=== PATIENT | male | born 1940 | race American Indian/Alaskan Native ===

== ENCOUNTER 2016-09-19 09:16 | Day surgery (SDC) | payer MEDICARE ==
[2015-11-19 19:05] VITALS: BMI 18.8
[2016-09-19] MEDS ORDERED: Midazolam 2 MG/2 ML VIAL ONE ×2 (12:33→12:43)
[2016-09-19] MEDS ORDERED: Propofol 10 mg/ml Inj (20 ML) ONE ×2 (12:33→12:43)
[2016-09-19] MEDS ORDERED: Lactated Ringer's 1,000 ML IV ONE (12:40)
[2016-09-19] MEDS ORDERED: Bupivacaine HCl 0.25% PF (10 ml) Inj ONE (12:49)
[2016-09-19] MEDS ORDERED: ceFAZolin IV 1 gm in Dextrose 1 GM/50 ML BAG IVPB ONE (12:49)
[2016-09-19] MEDS ORDERED: HYDROmorphone 0.5 mg/0.5 ml ISec IVP PRN (13:27)
[2016-09-19] MEDS ORDERED: Oxycodone/Acetaminophen 5/325 mg Tab PO PRN ×2 (13:47→14:59)
[2016-09-19 15:26] VITALS: BP 147/52; PULSE 60; RESP 18; TEMP 97; O2SAT 100
--- NOTE | 2016-09-19 17:42 | OP ---
PROCEDURE DATE: 09/19/2016 PREOPERATIVE DIAGNOSIS: Right inguinal hernia. POSTOPERATIVE DIAGNOSIS: Right inguinal hernia. PROCEDURE PERFORMED: 1. Repair of right inguinal hernia with mesh. 2. Repair of testicular artery bleeding. 3. Adjacent tissue transfer closure greater than 30 square cm. SURGEON: Angel Sweet MD ANESTHESIA: General endotracheal. ESTIMATED BLOOD LOSS: Was 40 mL. POSTOPERATIVE CONDITION: Stable. INDICATIONS FOR SURGERY: This is a 76-year-old male with a large right inguinal hernia, now to under go elective repair. GROSS FINDINGS: There was a large indirect right inguinal hernia. The sac extended into the scrotum . During dissection of the sac, there was bleeding from the testicular artery, which was repaired an d had documented flow by Doppler. There were no other abnormal findings. PROCEDURE: The patient taken to the operating room. General anesthesia administered and the right g roin was prepped and draped. A standard right inguinal incision was made and the right external obli que aponeurosis was opened. The spermatic cord was looped with a [place] drain and the hernia sac wa s identified within the cord. It was carefully dissected free back to the internal ring and inverted . Bleeding from the testicular artery was noted and closed with a 7-0 Prolene. Flow was confirmed b y Doppler. Next, a large hernia plug was inserted into the hernia defect and sutured in place with interrupted 2 -0 Prolene sutures. The wound was irrigated with copious amounts of saline solution. Due to a large amount of space, an adjacent tissue transfer closure of greater than 30 square cm was utilized for closure by widely mobilizing, undermining multiple layers of Monocryl, subcuticular Monocry l, and skin clips. The patient tolerated procedure well, returned to recovery room in stable conditi on. Angel Sweet MD cc: [id number] TT: 09/19/2016 17:42:15 hannah
== END 2016-09-19 15:40 | disposition home or self-care (01) ==
LOC: C.SDS 09:16
PROVIDERS: ATTEND Surgery
DX: K40.90 Unilateral inguinal hernia, without obstruction or gangrene, not specified as recurrent (principal); I97.52 Accidental puncture and laceration of a circulatory system organ or structure during other procedure; E11.9 Type 2 diabetes mellitus without complications; I10 Essential (primary) hypertension; J44.9 Chronic obstructive pulmonary disease, unspecified; Z72.0 Tobacco use; N40.0 Benign prostatic hyperplasia without lower urinary tract symptoms; Z79.899 Other long term (current) drug therapy; Y65.8 Other specified misadventures during surgical and medical care; Y92.234 Operating room of hospital as the place of occurrence of the external cause
CPT/HCPCS: 14301; 35221; 49505; J0690; J2001; J2250; J2704; J3010; J7120

== ENCOUNTER 2018-07-30 17:30 | Inpatient (IN) | payer OTHER ==
[2018-07-30 17:31] VITALS: BMI 18.8
[2018-07-30] MEDS ORDERED: Aspirin 325 mg EC Tablets PO STA (18:06)
[2018-07-30] MEDS ORDERED: Enoxaparin 40 mg Syringe SC STA (18:06)
[2018-07-30 18:24] LABS: BASO % 0.7 % (0.0-2.0); EOS # 0.1 K/uL (0.0-0.7); HEMOGLOBIN 13.4 g/dL (12.0-18.0); LYMPH # 2.1 K/uL (1.0-4.3); LYMPH % 35.8 % (20.0-40.0); MEAN CELL VOLUME 84.6 fL (80.0-94.0); MEAN CORPUSCULAR HEMOGLOBIN 27.7 pg (27.0-31.0); MEAN CORPUSCULAR HGB CONC 32.8 g/dL (33.0-37.0); MEAN PLATELET VOLUME 9.6 fL (7.2-11.7); MONO # 0.6 K/uL (0.0-0.8); MONO % 9.9 % (0.0-10.0); NEUT # 3.1 K/uL (1.8-7.0); NEUT % 51.6 % (50.0-75.0); RBC 4.84 Mil/uL (4.40-5.90); RED CELL DISTRIBUTION WIDTH 13.9 % (11.5-14.5)
[2018-07-30 18:32] LABS: INR 1.1; PROTHROMBIN TIME 11.7 SECONDS (9.7-12.2)
[2018-07-30] MEDS ORDERED: Enoxaparin 80 mg Syringe ONE (18:39)
[2018-07-30] MEDS ORDERED: Aspirin 325 mg EC Tablets PO ONE (18:39)
[2018-07-30 18:48] LABS: ALB/GLOB RATIO 1.1 (1.0-2.1); ALBUMIN 4.2 g/dL (3.5-5.0); BLOOD UREA NITROGEN 17 mg/dL (9-20); CALCIUM 9.7 mg/dl (8.6-10.4); GFR NON-AFRICAN AMERICAN > 60
[2018-07-30 18:51] LABS: ALT/SGPT 10 U/L (21-72); AST/SGOT 40 U/L (17-59)
--- NOTE | 2018-07-30 18:51 | RAD ---
Date of service: 07/30/2018 PROCEDURE: CHEST RADIOGRAPH, 1 VIEW HISTORY: SOB COMPARISON: None available. FINDINGS: LUNGS: Clear. PLEURA: No pneumothorax or pleural fluid seen. CARDIOVASCULAR: Atherosclerotic calcifications identified primarily aortic arch. No radiographic findings to suggest acute or significant cardiovascular disease. OSSEOUS STRUCTURES: No significant abnormalities. VISUALIZED UPPER ABDOMEN: Normal. OTHER FINDINGS: None. IMPRESSION: No active disease.No significant interval change compared to the prior examination(s).
[2018-07-30 18:58] LABS: B-TYPE NATRIURETIC PEPTIDE 304 pg/mL (0-900)
--- NOTE | 2018-07-30 19:02 | C.PDOC ---
History Of Present Illness Patient is a 78 year old male, with a PMHx of [place], who presents to the ED with his daughter after being referred from Dr. Rivera's office for an abnormal EKG. Patient was seen in office for routine follow up and was found to have ST shala vations of anterior leads with reciprocal changes. Dr. Rivera wants patient to be admitted to observation and have a cardiac cath done in morning. He denies any CP or SOB. Daughter translated Creole at bedside. Time Seen by Provider: 07/30/18 17:49 Chief Complaint (Nursing): Medical Clearance History Per: Patient, Family History/Exam Limitations: no limitations Current Symptoms Are (Timing): Still Present Recent travel outside of the [place]: No Additional History Per: Patient, Family Past Medical History Reviewed: Historical Data, Nursing Documentation, Vital Signs Vital Signs: Last Vital Signs Temp 97.8 F 07/30/18 17:33 Pulse 76 07/30/18 18:51 Resp 20 07/30/18 18:51 BP 159/67 H 07/30/18 18:51 Pulse Ox 96 07/30/18 18:51 - Medical History PMH: COPD, HTN Surgical History: No Surg Hx Family History: States: Unknown Family Hx - Social History Hx Alcohol Use: No Hx Substance Use: No - Immunization History Hx Tetanus Toxoid Vaccination: No Hx Influenza Vaccination: Yes Hx Pneumococcal Vaccination: No Review Of Systems Cardiovascular: Positive for: Other (abnormal EKG finding). Negative for: Chest Pain Respiratory: Negative for: Shortness of Breath Physical Exam - Physical Exam Appears: Non-toxic, No Acute Distress Skin: Normal Color, Warm, Dry Head: Atraumatic, Normacephalic Oral Mucosa: Moist Neck: Normal ROM Chest: Symmetrical Cardiovascular: Rhythm Regular Respiratory: Normal Breath Sounds, No Rales, No Rhonchi, No Wheezing Gastrointestinal/Abdominal: Soft Neurological/Psych: Oriented x3 ED Course And Treatment - Laboratory Results Result Diagrams: 07/30/18 18:19 07/30/18 18:19 Lab Results: PT 11.7 SECONDS (9.7-12.2) 07/30/18 18:19 INR 1.1 07/30/18 18:19 APTT 38.0 SECONDS (21-34) H 07/30/18 18:19 Troponin I < 0.0120 ng/mL (0.00-0.120) 07/30/18 18:19 NT-Pro-B Natriuret Pep 304 pg/mL (0-900) 07/30/18 18:19 Total Bilirubin 0.7 mg/dL (0.2-1.3) 07/30/18 18:19 AST 40 U/L (17-59) 07/30/18 18:19 ALT 10 U/L (21-72) L 07/30/18 18:19 Alkaline Phosphatase 91 U/L (38-126) 07/30/18 18:19 Total Protein 8.2 g/dL (6.3-8.3) 07/30/18 18:19 Albumin 4.2 g/dL (3.5-5.0) 07/30/18 18:19 Globulin 4.0 gm/dL (2.2-3.9) H 07/30/18 18:19 Albumin/Globulin Ratio 1.1 (1.0-2.1) 07/30/18 18:19 Lab Interpretation: Normal (bnp/trop neg.) ECG: Interpreted By Me, Viewed By Me ECG Rhythm: Sinus Rhythm Interpretation Of ECG: Apparent ST elevations V1, V2, V3 without reciprocal changes Rate From EC O2 Sat by Pulse Oximetry: 96 (on RA) Pulse Ox Interpretation: Normal - Other Rad CXR X-Ray: Viewed By Me, Read By Radiologist Interpretation: IMPRESSION: No active disease.No significant interval change compared to the prior examination(s). Reevaluation Time: 19:18 Reassessment Condition: Unchanged (remains asymptomatic) Medical Decision Making Medical Decision Making: Plan: EKG Bloodwork CXR Ecotrin 325mg PO Plavix 300mg PO Lovenox 50mg PO d/w Dr. Rivera W 1800 and 1900 ok to consult 1914: d/w Dr. Miranda-PMD, ok to Tele obs, but to Hospitalists (out w knee surgery) 2019: d/w Dr. Worrell- Hospitalist- ok to tele obs Disposition Doctor Will See Patient In The: Hospital Counseled Patient/Family Regarding: Studies Performed, Diagnosis - Disposition Disposition: HOSPITALIZED Disposition Time: 19:20 Condition: GOOD - Clinical Impression Clinical Impression: Acute electrocardiogram changes - Scribe Statement The provider has reviewed the documentation as recorded by the Scribrosa Fang All medical record entries made by the Scribe were at my direction and personally dictated by me. I have reviewed the chart and agree that the record accurately reflects my personal performance of the history, physical exam, medical decision making, and the department course for this patient. I have also personally directed, reviewed, and agree with the discharge instructions and disposition.
--- NOTE | 2018-07-30 21:19 | CP.PCM.HP ---
<Dago Edmond - Last Filed: 07/30/18 22:30> History of Present Illness - History of Present Illness History of Present Illness: 78 year old Citizen Of [place] creole speaking male with a past medical history of hypertension, bph and speech impediment presents to the hospital after being referred here by his Hyperbaric Tech Dr. Rivera. Patient was seen earlier today in the office and had an ekg done that showed some changes in the anterior leads. Patient was told to come into the hospital to stay for cardiac catherization in the morning. Patient denies any symptoms in regards to daily activities. Per converstion with his sister Bret, he doesn't always let his family members know when something is bothering him. Patient denies any chest pain, shortness of breath, fevers, chills, headaches, dizziness, changes in vision, palpitations, dyspnea, or any other complaints. PMD: Dr. Miranda Hyperbaric Tech: Dr. Rivera Medical history: htn, bph, speech impediment Surgical history: Inguinal hernia repair Allergies: Denies Medications: Hydrochlorthiazide 25mg PO DAILY Dicyclomine 20mg PO TID Aspirin 81mg PO DAILY Atenolol 25mg PO DAILY Tamsulosin .4mg PO DAILY Dicyclomine 20mg PO TID Amlodipine 5mg PO DAILY Finasteride 5mg PO DAILY Social history: Smoker since a teenager ( 3 cigarettes a day). Denies alcohol use. Denies illict drug use. Lives with Sister and Karrieer in [place]. 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 Moved from [facility] approximately 20 years ago. Contact info: Bret (Sister): [phone] Present on Admission - Present on Admission Any Indicators Present on Admission: No Review of Systems - Constitutional Constitutional: absent: Chills, Daytime Sleepiness, Frequent Falls, Headache, Night Sweats, Weakness - EENT Eyes: absent: Blurred Vision, Diplopia, Discharge, Loss of Peripheral Vision, L oss of Vision Ears: absent: Ear Discharge, Dizziness Nose/Mouth/Throat: absent: Nasal Congestion, Nose Pain, Bleeding Gums, Dysphagia, Mouth Pain, Facial Pain - Cardiovascular Cardiovascular: absent: Chest Pain, Edema, Irregular Heart Rhythm, Leg Edema, Orthopnea, Palpitations, Pedal Edema, Syncope - Respiratory Respiratory: absent: Cough, Dyspnea, Hemoptysis, Change in Mucous Color - Gastrointestinal Gastrointestinal: absent: Belching, Change in Stool Character, Dysphagia, Melena, Nausea, Vomiting - Genitourinary Genitourinary: absent: Change in Urinary Stream, Nocturia, Urinary Urgency, Bladder Distension - Musculoskeletal Musculoskeletal: absent: Arthralgias, Atrophy, Myalgias, Neck Pain, Tingling - Integumentary Integumentary: absent: Bleeding Lesions, Lesions, New Lesions, Striae, Swelling - Neurological Neurological: absent: Abnormal Hearing, Confusion, Loss of Vision, Tingling, Tremor, Vertigo, Weakness - Psychiatric Psychiatric: absent: Anxiety, Behavioral Changes, Homicidal Ideation, Panic Attacks - Endocrine Endocrine: absent: Polydipsia, Polyphagia, Polyuria - Hematologic/Lymphatic Hematologic: absent: Easy Bleeding, Easy Bruising Past Patient History - Past Medical History & Family History Past Medical History?: Yes - Past Social History Smoking Status: Light Smoker < 10 Cigarettes Daily - CARDIAC Hx Hypertension: Yes - PULMONARY Hx Chronic Obstructive Pulmonary Disease (COPD): Yes - HEENT Hx HEENT Problems: Yes (GLASSES) Hx Cataracts: Yes - GASTROINTESTINAL Hx Gastrointestinal Disorders: Yes Other/Comment: right inguinal hernia repair - GENITOURINARY/GYNECOLOGICAL Hx Prostate Problems: Yes (BPH) - PSYCHIATRIC Hx Substance Use: No - SURGICAL HISTORY Hx Surgeries: Yes Hx Cataract Extraction: Yes (BILATERAL IOLI) Other/Comment: CYSTO PROSTATE BIOPSY - ANESTHESIA Hx Anesthesia: Yes Hx Anesthesia Reactions: No Hx Malignant Hyperthermia: No Meds Allergies/Adverse Reactions: Allergies Allergy/AdvReac Type Severity Reaction Status Date / Time No Known Allergies Allergy Verified 07/30/18 17:39 Physical Exam - Head Exam Head Exam: ATRAUMATIC, NORMAL INSPECTION, NORMOCEPHALIC - Eye Exam Eye Exam: EOMI, Normal appearance, PERRL. absent: Periorbital tenderness Pupil Exam: NORMAL ACCOMODATION, PERRL. absent: Irregular, Unequal - ENT Exam ENT Exam: Mucous Membranes Moist, Normal Exam, Normal Oropharynx. absent: TM's Normal Bilaterally - Respiratory Exam Respiratory Exam: Clear to Auscultation Bilateral, NORMAL BREATHING PATTERN. absent: Chest Wall Tenderness, Prolonged Expiratory Phase, Respiratory Distress - Cardiovascular Exam Cardiovascular Exam: REGULAR RHYTHM, +S1, +S2. absent: JVD, RRR, +S4 - GI/Abdominal Exam GI & Abdominal Exam: Normal Bowel Sounds, Soft. absent: Hypoactive Bowel Sounds, Organomegaly, Tenderness - Extremities Exam Extremities exam: Positive for: normal inspection. Negative for: full ROM, pedal edema - Back Exam Back exam: absent: paraspinal tenderness - Neurological Exam Neurological exam: Alert, CN II-XII Intact, Normal Gait, Oriented x3 - Psychiatric Exam Psychiatric exam: Normal Affect, Normal Mood - Skin Skin Exam: Dry, Intact, Normal Color Results - Vital Signs Recent Vital Signs: Last Vital Signs Temp 98.1 F 07/30/18 20:41 Pulse 67 07/30/18 20:41 Resp 20 07/30/18 20:41 BP 159/66 H 07/30/18 20:41 Pulse Ox 96 07/30/18 20:53 - Labs Result Diagrams: 07/30/18 18:19 07/30/18 18:19 Labs: Laboratory Results - last 24 hr 07/30/18 07/30/18 07/30/18 18:19 18:19 18:19 WBC 6.0 RBC 4.84 Hgb 13.4 Hct 40.9 MCV 84.6 MCH 27.7 MCHC 32.8 L RDW 13.9 Plt Count 145 MPV 9.6 Neut % (Auto) 51.6 Lymph % (Auto) 35.8 [place] % (Auto) 9.9 Eos % (Auto) 2.0 Baso % (Auto) 0.7 Neut # (Auto) 3.1 Lymph # (Auto) 2.1 [place] # (Auto) 0.6 Eos # (Auto) 0.1 Baso # (Auto) 0.0 PT 11.7 INR 1.1 APTT 38.0 H Sodium 136 Potassium 4.4 Chloride 98 Carbon Dioxide 31 H Anion Gap 11 BUN 17 Creatinine 1.0 Est GFR ( Amer) > 60 Est GFR (Non-Af Amer) > 60 Random Glucose 82 Calcium 9.7 Total Bilirubin 0.7 AST 40 ALT 10 L Alkaline Phosphatase 91 Troponin I < 0.0120 NT-Pro-B Natriuret Pep 304 Total Protein 8.2 Albumin 4.2 Globulin 4.0 H Albumin/Globulin Ratio 1.1 Assessment & Plan - Assessment and Plan (Free Text) Assessment: 78 year old Citizen Of [place] creole speaking male with a past medical history of hypertension, bph and speech impediment presents to the hospital after being referred here by his Hyperbaric Tech Dr. Rivera Plan: 1.EKG changes in ST elevations V1, V2, V3 -Seen in office by Dr. Rivera and had ST elevations on V1-V3. -Received Aspirin 325mg PO AND Plavix 300mg in the E.D. -Cardiology Dr. Rivera consulted---> Help appreciated. -Tentative Cardiac Cath in the morning pending repeat Troponin -Lexiscan stress test ordered for tomorrow if Troponin is negative. -Echocardiogram ordered. Will f/u with results 2.Hypertension -Continue Norvasc 5mg PO DAILY -Continue Hydrochlorothiazide 25mg PO DAILY -Continue Atenolol 25mg PO DAILY ANN MARIE 3.hx of BPH -Continue Flomax .4mg PO DAILY ANN MARIE -Continue Proscar 5mg PO DAILY ANN MARIE PPX -Pepcid -SCD's Plan discussed with Attending Dr. Worrell. Dago Edmond, PGY-2 <Nandini Worrell N - Last Filed: 07/31/18 07:18> Results - Vital Signs Recent Vital Signs: Last Vital Signs Temp 98.1 F 07/31/18 04:57 Pulse 79 07/31/18 04:57 Resp 18 07/31/18 04:57 BP 134/68 07/31/18 04:57 Pulse Ox 94 L 07/31/18 04:57 - Labs Result Diagrams: 07/31/18 04:15 07/31/18 04:15 Labs: Laboratory Results - last 24 hr 07/30/18 07/30/18 07/30/18 18:19 18:19 18:19 WBC 6.0 RBC 4.84 Hgb 13.4 Hct 40.9 MCV 84.6 MCH 27.7 MCHC 32.8 L RDW 13.9 Plt Count 145 MPV 9.6 Neut % (Auto) 51.6 Lymph % (Auto) 35.8 [place] % (Auto) 9.9 Eos % (Auto) 2.0 Baso % (Auto) 0.7 Neut # (Auto) 3.1 Lymph # (Auto) 2.1 [place] # (Auto) 0.6 Eos # (Auto) 0.1 Baso # (Auto) 0.0 PT 11.7 INR 1.1 APTT 38.0 H Sodium 136 Potassium 4.4 Chloride 98 Carbon Dioxide 31 H Anion Gap 11 BUN 17 Creatinine 1.0 Est GFR ( Amer) > 60 Est GFR (Non-Af Amer) > 60 Random Glucose 82 Calcium 9.7 Phosphorus Magnesium Total Bilirubin 0.7 AST 40 ALT 10 L Alkaline Phosphatase 91 Total Creatine Kinase CK-MB (Mass) Troponin I < 0.0120 NT-Pro-B Natriuret Pep 304 Total Protein 8.2 Albumin 4.2 Globulin 4.0 H Albumin/Globulin Ratio 1.1 Triglycerides Cholesterol LDL Cholesterol Direct HDL Cholesterol TSH 3rd Generation 07/31/18 07/31/18 04:15 04:15 WBC 6.3 RBC 5.00 Hgb 13.8 Hct 42.7 MCV 85.3 MCH 27.6 MCHC 32.3 L RDW 13.6 Plt Count 137 MPV 10.1 Neut % (Auto) 51.4 Lymph % (Auto) 36.9 [place] % (Auto) 8.2 Eos % (Auto) 2.8 Baso % (Auto) 0.7 Neut # (Auto) 3.2 Lymph # (Auto) 2.3 [place] # (Auto) 0.5 Eos # (Auto) 0.2 Baso # (Auto) 0.0 PT INR APTT Sodium 136 Potassium 3.8 Chloride 97 L Carbon Dioxide 30 Anion Gap 12 BUN 18 Creatinine 1.0 Est GFR ( Amer) > 60 Est GFR (Non-Af Amer) > 60 Random Glucose 85 Calcium 9.6 Phosphorus 3.6 Magnesium 1.8 Total Bilirubin 0.5 AST 37 ALT 11 L Alkaline Phosphatase 96 Total Creatine Kinase 106 CK-MB (Mass) 1.13 Troponin I < 0.0120 NT-Pro-B Natriuret Pep Total Protein 7.4 Albumin 3.9 Globulin 3.5 Albumin/Globulin Ratio 1.1 Triglycerides 101 Cholesterol 209 H LDL Cholesterol Direct 122 HDL Cholesterol 58 TSH 3rd Generation 2.73 Attending/Attestation - Attestation I have fully participated in the care of the patient.: Yes I have reviewed all pertinent clinical information: Yes
[2018-07-31 04:18] LABS: BASO % 0.7 % (0.0-2.0); EOS # 0.2 K/uL (0.0-0.7); EOS % 2.8 % (0.0-4.0); HEMOGLOBIN 13.8 g/dL (12.0-18.0); LYMPH # 2.3 K/uL (1.0-4.3); LYMPH % 36.9 % (20.0-40.0); MEAN CELL VOLUME 85.3 fL (80.0-94.0); MEAN CORPUSCULAR HEMOGLOBIN 27.6 pg (27.0-31.0); MEAN CORPUSCULAR HGB CONC 32.3 g/dL (33.0-37.0); MEAN PLATELET VOLUME 10.1 fL (7.2-11.7); MONO # 0.5 K/uL (0.0-0.8); MONO % 8.2 % (0.0-10.0); NEUT # 3.2 K/uL (1.8-7.0); NEUT % 51.4 % (50.0-75.0); NRBC % 0.1 % (0.0-2.0); RED CELL DISTRIBUTION WIDTH 13.6 % (11.5-14.5); WHITE BLOOD COUNT 6.3 K/uL (4.8-10.8)
[2018-07-31 04:38] LABS: ALB/GLOB RATIO 1.1 (1.0-2.1); ALBUMIN 3.9 g/dL (3.5-5.0); ALT/SGPT 11 U/L (21-72); AST/SGOT 37 U/L (17-59); BLOOD UREA NITROGEN 18 mg/dL (9-20); CALCIUM 9.6 mg/dl (8.6-10.4); GFR NON-AFRICAN AMERICAN > 60; HDL CHOLESTEROL 58 mg/dL (30-70)
[2018-07-31 04:47] LABS: CK-MB 1.13 ng/mL (0.0-3.38)
[2018-07-31 04:49] LABS: LDL CHOLESTEROL 122 mg/dL (0-129)
[2018-07-31] MEDS ORDERED: Caffeine Citrated **INJ** 20 MG/ML IV ONE (08:22)
--- NOTE | 2018-07-31 09:25 | CP.PCM.PN ---
<Diamond Barrera Brett - Last Filed: 07/31/18 16:26> Subjective - Date & Time of Evaluation Date of Evaluation: 07/31/18 Time of Evaluation: 09:50 - Subjective Subjective: Medicine note ( Dr. Colmenares's service covering for Dr. Miranda) Silvia Jama Translating: Ilda, [id number] Patient was seen and examined at bedside as he was getting ready for his lexiscan stress test. Patient reports that he experienced mid-sternal left sided chest pain this morning as he was in the waiting room for his stress test, however, during the encounter, he denies chest pain. 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 Patient states that he did not have chest pain yesterday and that he was doing well. Patient denies any symptoms fever, chills, nausea, vomiting, palpitations, shortness of breath, numbness and tingling, abdominal pain. Objective - Vital Signs/Intake and Output Vital Signs (last 24 hours): Temp Pulse Resp BP Pulse Ox 98.0 F 58 L 20 134/73 98 07/31/18 07:20 07/31/18 07:20 07/31/18 07:20 07/31/18 07:20 07/31/18 07:20 - Medications Medications: Current Medications Amlodipine Besylate (Norvasc) 5 mg PO DAILY [facility] Aspirin (Aspirin Chewable) 81 mg PO DAILY [facility] Atenolol (Tenormin) 25 mg PO DAILY [facility] Enoxaparin Sodium (Lovenox) 40 mg SC DAILY [facility] Famotidine (Pepcid) 20 mg PO DAILY [facility] Finasteride (Proscar) 5 mg PO DAILY ANN MARIE Hydrochlorothiazide (Hydrodiuril) 25 mg PO DAILY ANN MARIE Tamsulosin HCl (Flomax) 0.4 mg PO DAILY ANN MARIE - Labs Labs: 07/31/18 04:15 07/31/18 04:15 PT 11.7 SECONDS (9.7-12.2) 07/30/18 18:19 INR 1.1 07/30/18 18:19 APTT 38.0 SECONDS (21-34) H 07/30/18 18:19 - Constitutional Appears: Well, No Acute Distress - Head Exam Head Exam: ATRAUMATIC, NORMAL INSPECTION - Eye Exam Eye Exam: EOMI, Normal appearance - ENT Exam ENT Exam: Mucous Membranes Moist - Respiratory Exam Respiratory Exam: Clear to Ausculation Bilateral, Wheezes, NORMAL BREATHING PATTERN. absent: Prolonged Expiratory Phase, Rhonchi - Cardiovascular Exam Cardiovascular Exam: REGULAR RHYTHM, +S1, +S2. absent: Tachycardia, Murmur - GI/Abdominal Exam GI & Abdominal Exam: Soft, Normal Bowel Sounds. absent: Distended, Firm, Guarding, Rigid, Tenderness - Extremities Exam Extremities Exam: Normal Inspection. absent: Calf Tenderness, Pedal Edema - Neurological Exam Neurological Exam: Alert, Awake, Oriented x3 - Psychiatric Exam Psychiatric exam: Normal Affect - Skin Skin Exam: Normal Color Assessment and Plan (1) Acute electrocardiogram changes Assessment & Plan: Consultation: * Cardiology, Dr. Rivera---> Help appreciated -Lexiscan stress test: No EKG changes; awaiting nuclear stress test report - Abnormal Echo and imaging, plans for Cardiac catherization, 08/01/18 at 11:00am Labs/Imaging: - WILMA score of 4: 20% risk at 14 days of [id number] new or recurrent VT or severe recurrent ischemia requiring urgent revascularization - EKG: ST elevation in lead V3 and T-wave inversion in V2 at blocker and polisher [employer] office 07/30/18 - EKG( inpatient): reconfirms ST changes in lead V3 and T-wave inversion in lead V2 - Echocardiogram - Lipid Panel: TGL:101, Cholesterol: 209, LDL: 122 and HDL: 58 - TSH 3rd generation 2.73 - HgbA1c: 6.3 - Troponin negative X2 Status: Acute (2) Hypertension Assessment & Plan: Continue home medications: - Norvasc 5mg PO daily - Atenolol 25mg PO daily - HCTZ 25mg PO daily Status: Acute (3) Benign prostate hyperplasia Assessment & Plan: Flomax 0.4mg PO daily Finastride 5mg PO daily Status: Acute (4) Glucose intolerance (impaired glucose tolerance) Assessment & Plan: HgbA1C: 6.3 Accuchecks Status: Acute (5) Prophylactic measure Assessment & Plan: GI: Pepcid 20mg PO QD DVT: Lovenox 40mg SC daily: will be held at 08/01/18 at 00:00 Disposition: Plans for cardiac catherization 08/01/18, 11:00am All plans and management discussed with Dr. Colmenares Status: Acute <DarrianElena V - Last Filed: 07/31/18 23:12> Objective - Vital Signs/Intake and Output Vital Signs (last 24 hours): Temp Pulse Resp BP Pulse Ox 98.0 F 58 L 20 134/73 98 07/31/18 07:20 07/31/18 07:30 07/31/18 07:20 07/31/18 07:20 07/31/18 12:42 - Medications Medications: Current Medications Amlodipine Besylate (Norvasc) 5 mg PO DAILY [facility] Last Admin: 07/31/18 12:46 Dose: 5 mg Aspirin (Aspirin Chewable) 81 mg PO DAILY [facility] Last Admin: 07/31/18 10:27 Dose: Not Given Atenolol (Tenormin) 25 mg PO DAILY [facility] Last Admin: 07/31/18 10:28 Dose: Not Given Enoxaparin Sodium (Lovenox) 40 mg SC DAILY [facility] Last Admin: 07/31/18 10:28 Dose: Not Given Famotidine (Pepcid) 20 mg PO DAILY [facility] Last Admin: 07/31/18 12:45 Dose: 20 mg Finasteride (Proscar) 5 mg PO DAILY [facility] Last Admin: 07/31/18 12:44 Dose: 5 mg Hydrochlorothiazide (Hydrodiuril) 25 mg PO DAILY [facility] Last Admin: 07/31/18 12:45 Dose: 25 mg Tamsulosin HCl (Flomax) 0.4 mg PO DAILY [facility] Last Admin: 07/31/18 10:28 Dose: Not Given - Labs Labs: 07/31/18 04:15 07/31/18 04:15 PT 11.7 SECONDS (9.7-12.2) 07/30/18 18: INR 1.1 07/30/18 18: APTT 38.0 SECONDS (21-34) H 07/30/18 18:19 Attending/Attestation - Attestation I have personally seen and examined this patient.: Yes I have fully participated in the care of the patient.: Yes I have reviewed all pertinent clinical information, including history, physical exam and plan: Yes Notes (Text): Hospitalist covering for Dr. Miranda who is away up until August 04. This is a 78-year-old male past medical history of hypertension, benign prostatic hyperplasia as well as speech impediment who was initially evaluated at his outpatient blocker and polisher [employer] office noted to have abnormal EKG changes. Per patient does have high cardiac risk risk. Patient is also a smoker as well. Patient seen at stress test with intact translating and cranial. Patient presently is asymptomatic however had reported chest pain earlier. Patient to undergo a Lexiscan stress test per cardiology he will see well following cardiology in terms of further management. Pending the results. Patient is presently on an aspirin beta marilyn and calcium channel marilyn hydrochlorothiazide we will add on a statin for chest pain in light of cardiac risk factors including -[place] hypertension and smoker as well as abnormal EKG changes. Cardiology on board continue to monitor on telemetry. Patient A1c is 6.3. Glucose intolerance will likely need a repeat A1c in 3-6 months to prevent overt diabetes have added on dietitian referral as well given that he will need diet modifications. Lipid reviewed he does have mildly elevated lipid about 209 I have added Crestor 5 mg once at night. Resident spoke with Senior Embedded Software Engineer following completion of stress test, recommended for cardiac cath in the AM.
[2018-07-31] MEDS: Enoxaparin 40 mg Syringe SC SCH (10:28)
[2018-07-31 14:58] LABS: CK-MB 1.67 ng/mL (0.0-3.38)
--- NOTE | 2018-08-01 03:14 | CARD ---
APPROVED REPORT Date of service: 07/30/2018 EKG Measurement Heart [id number] <Conclusion> Sinus rhythm with marked sinus arrhythmia Voltage criteria for left ventricular hypertrophy Anteroseptal infarct, age undetermined Abnormal ECG
[2018-08-01 08:14] LABS: BASO % 0.7 % (0.0-2.0); EOS # 0.1 K/uL (0.0-0.7); EOS % 2.6 % (0.0-4.0); LYMPH # 1.9 K/uL (1.0-4.3); LYMPH % 34.6 % (20.0-40.0); MEAN CELL VOLUME 84.5 fL (80.0-94.0); MEAN CORPUSCULAR HGB CONC 33.2 g/dL (33.0-37.0); MONO # 0.5 K/uL (0.0-0.8); MONO % 8.9 % (0.0-10.0); NEUT % 53.2 % (50.0-75.0); NRBC % 0.1 % (0.0-2.0); RBC 4.98 Mil/uL (4.40-5.90); RED CELL DISTRIBUTION WIDTH 13.6 % (11.5-14.5); WHITE BLOOD COUNT 5.6 K/uL (4.8-10.8)
[2018-08-01 08:29] LABS: ALB/GLOB RATIO 1.1 (1.0-2.1); ALT/SGPT 10 U/L (21-72); AST/SGOT 24 U/L (17-59); BLOOD UREA NITROGEN 24 mg/dL (9-20); CALCIUM 9.6 mg/dl (8.6-10.4); GFR NON-AFRICAN AMERICAN 59
[2018-08-01] MEDS ORDERED: Sodium Chloride 0.9% 1,000 ML IV SCH (09:00)
--- NOTE | 2018-08-01 10:13 | CARD ---
APPROVED REPORT Date of service: 07/31/2018 EXAM: Two-dimensional and M-mode echocardiogram with Doppler and color Doppler. Other Information Quality : GoodRhythm : INDICATION ekg changes RISK FACTORS Hypertension 2D DIMENSIONS IVSd0.7 (0.7-1.1cm)LVDd4.5 (3.9-5.9cm) PWd0.9 (0.7-1.1cm)LA [id number] (18-58mL) LVDs3.4 (2.5-4.0cm)FS (%) 25.8 % LVEF (%)50.9 (>50%)LVEF (Villa's)55 % M-Mode DIMENSIONS Left Atrium (MM)2.68 (2.5-4.0cm)IVSd1.16 (0.7-1.1cm) Aortic Root3.21 (2.2-3.7cm)LVDd4.31 (4.0-5.6cm) PWd0.71 (0.7-1.1cm)FS (%) 30 % LVDs3.01 (2.0-3.8cm)LVEF (%)50 (>50%) Aortic Valve AI P 1/2 [id number] Mitral Valve MV E Klrrzeid58.1cm/sMV A Czdhbaik06.5cm/sE/A ratio0.8 TDI Lateral E' Peak V5.19cm/sMedial E' Peak V4.74cm/sE/Lateral E'13.3 E/Medial E'14.6 LEFT VENTRICLE The left ventricle is normal size. There is normal left ventricular wall thickness. Left ventricle systolic function is normal. The Ejection Fraction is 55-60%. There is normal LV segmental wall motion. Tissue Doppler imaging reveals abnormal left ventricular diastolic dysfunction. RIGHT VENTRICLE The right ventricle is normal size. There is normal right ventricular wall thickness. The right ventricular systolic function is normal. ATRIA The left atrium size is normal. The right atrium size is normal. The interatrial septum is intact with no evidence for an atrial septal defect. AORTIC VALVE The aortic valve is normal in structure. There is mild to moderate aortic regurgitation. There is no aortic valvular stenosis. There is no aortic valvular vegetation. MITRAL VALVE The mitral valve is normal in structure. There is no evidence of mitral valve prolapse. There is no mitral valve stenosis. There is no mitral valve regurgitation noted. TRICUSPID VALVE The tricuspid valve is normal in structure. There is no tricuspid valve regurgitation noted. There is no tricuspid valve prolapse or vegetation. There is no tricuspid valve stenosis. PULMONIC VALVE The pulmonic valve is not well visualized. There is no pulmonic valvular regurgitation. GREAT VESSELS The aortic root is normal in size. PERICARDIAL EFFUSION There is no significant pericardial effusion. <Conclusion> Left ventricle systolic function is normal. The Ejection Fraction is 55-60%. Diastolic dysfunction. There is mild to moderate aortic regurgitation. There is no mitral valve regurgitation noted. There is no tricuspid valve regurgitation noted. There is no pulmonic valvular regurgitation.
--- NOTE | 2018-08-01 10:14 | CP.PCM.PN ---
<Diamond Barrera E - Last Filed: 08/01/18 16:03> Subjective - Date & Time of Evaluation Date of Evaluation: 08/01/18 Time of Evaluation: 09:30 - Subjective Subjective: Medicine note ( Dr. Colmenares's service covering for Dr. Miranda's service) Patient was seen and examined at bedside as he was sitting at the edge of his bed. Patient states that he is doing well and denies any acute issues or complaints at this time. Patient denies any symptoms of chest pain, palpitations, shortness of breath, dizziness, lightheadedness. Patient is aware that he is having a cardiac catherization today. This was explained to patient yesterday with the assistance of his daughter, Suzanne at bedside. DaughterSuzanne:[phone] Objective - Vital Signs/Intake and Output Vital Signs (last 24 hours): Temp Pulse Resp BP Pulse Ox 98.3 F 77 20 131/67 96 08/01/18 07:25 08/01/18 07:25 08/01/18 07:25 08/01/18 07:25 08/01/18 07:25 - Medications Medications: Current Medications Amlodipine Besylate (Norvasc) 5 mg PO DAILY [facility] Last Admin: 08/01/18 09:49 Dose: 5 mg Aspirin (Aspirin Chewable) 81 mg PO DAILY [facility] Last Admin: 07/31/18 10:27 Dose: Not Given Atenolol (Tenormin) 25 mg PO DAILY [facility] Last Admin: 08/01/18 09:49 Dose: 25 mg Enoxaparin Sodium (Lovenox) 40 mg SC DAILY [facility] Last Admin: 07/31/18 10:28 Dose: Not Given Famotidine (Pepcid) 20 mg PO DAILY [facility] Last Admin: 08/01/18 09:49 Dose: 20 mg Finasteride (Proscar) 5 mg PO DAILY [facility] Last Admin: 08/01/18 09:50 Dose: 5 mg Hydrochlorothiazide (Hydrodiuril) 25 mg PO DAILY [facility] Last Admin: 08/01/18 09:49 Dose: 25 mg Sodium Chloride (Sodium Chloride 0.9%) 1,000 mls @ 50 mls/hr IV .Q20H [facility] Stop: 08/01/18 15:01 Last Admin: 08/01/18 09:58 Dose: 50 mls/hr Rosuvastatin Calcium (Crestor) 5 mg PO HS [facility] Last Admin: 07/31/18 21:39 Dose: 5 mg Tamsulosin HCl (Flomax) 0.4 mg PO DAILY [facility] Last Admin: 08/01/18 09:49 Dose: 0.4 mg - Labs Labs: 08/01/18 08:08 08/01/18 08:08 PT 11.7 SECONDS (9.7-12.2) 07/30/18 18:19 INR 1.1 07/30/18 18:19 APTT 38.0 SECONDS (21-34) H 07/30/18 18:19 - Constitutional Appears: Well, No Acute Distress - Head Exam Head Exam: ATRAUMATIC, NORMAL INSPECTION - Eye Exam Eye Exam: EOMI, Normal appearance - ENT Exam ENT Exam: Mucous Membranes Moist - Respiratory Exam Respiratory Exam: Clear to Ausculation Bilateral, NORMAL BREATHING PATTERN. absent: Decreased Breath Sounds, Prolonged Expiratory Phase, Rhonchi, Wheezes, Respiratory Distress - Cardiovascular Exam Cardiovascular Exam: REGULAR RHYTHM, +S1, +S2. absent: Tachycardia, Clicks, Diastolic murmur, Murmur - GI/Abdominal Exam GI & Abdominal Exam: Soft, Normal Bowel Sounds. absent: Distended, Firm, Guarding, Rigid, Tenderness - Extremities Exam Extremities Exam: Normal Inspection. absent: Calf Tenderness, Pedal Edema - Neurological Exam Neurological Exam: Alert, Awake, Oriented x3 - Psychiatric Exam Psychiatric exam: Normal Affect - Skin Skin Exam: Normal Color Assessment and Plan (1) Acute electrocardiogram changes Assessment & Plan: Consultation: * Cardiology, Dr. Rivera---> Help appreciated -Lexiscan stress test: No EKG changes; awaiting nuclear stress test report - As per Dr. 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 The ejection fraction is 55-60%. Diastolic dysfunction. There is mild to moderate aortic reg urgitation. There is no mitral valve regurgitation noted. There is no tricuspid valve regurgtation noted. There is no pulmonic valvular regurgitation - Lipid Panel: TGL:101, Cholesterol: 209, LDL: 122 and HDL: 58 - TSH 3rd generation 2.73 - HgbA1c: 6.3 - Troponin negative X3 Medications: * Initiation of plavix 75mg PO daily (08/01/18) * Continue ASA 81mg PO daily * Continue atenolol 25mg PO daily * Crestor 5mg PO HS Status: Acute (2) Hypertension Assessment & Plan: Continue home medications: - Norvasc 5mg PO daily - Atenolol 25mg PO daily - HCTZ 25mg PO daily Status: Acute (3) Benign prostate hyperplasia Assessment & Plan: Flomax 0.4mg PO daily Finastride 5mg PO daily Status: Acute (4) Glucose intolerance (impaired glucose tolerance) Assessment & Plan: HgbA1C: 6.3 Accuchecks Status: Acute (5) Tobacco abuse Assessment & Plan: Teenager (3 cigarettes a day) Patient quit tobacco 3 months ago Nicotine 7mg/24 hr 1 patch daily Status: Acute (6) Creatinine elevation Assessment & Plan: Cr: 1.2; 0.2 point elevation from admission Cr baseline * NS @ 50mls/cc for 6 hours * Will continue to monitor with labs Status: Acute (7) Prophylactic measure Assessment & Plan: GI: Pepcid 20mg PO QD DVT: Lovenox 40mg SC daily: will be held at 08/01/18 at 00:00 for cardiac catherization Disposition: As per Dr. Rivera, patient was noted to have an abnormal Catheri zation, RCA blockage - Plans for PCI All plans and management discussed with Dr. Colmenares Status: Acute <Elena Colmenares V - Last Filed: 08/01/18 18:23> Objective - Vital Signs/Intake and Output Vital Signs (last 24 hours): Temp Pulse Resp BP Pulse Ox 97.9 F 73 20 126/67 92 L 08/01/18 15:00 08/01/18 15:00 08/01/18 15:00 08/01/18 15:00 08/01/18 15:00 - Medications Medications: Current Medications Amlodipine Besylate (Norvasc) 5 mg PO DAILY [facility] Last Admin: 08/01/18 09:49 Dose: 5 mg Aspirin (Aspirin Chewable) 81 mg PO DAILY [facility] Last Admin: 08/01/18 10:43 Dose: Not Given Atenolol (Tenormin) 25 mg PO DAILY [facility] Last Admin: 08/01/18 09:49 Dose: 25 mg Clopidogrel Bisulfate (Plavix) 75 mg PO DAILY [facility] Enoxaparin Sodium (Lovenox) 40 mg SC DAILY [facility] Last Admin: 07/31/18 10:28 Dose: Not Given Famotidine (Pepcid) 20 mg PO DAILY [facility] Last Admin: 08/01/18 09:49 Dose: 20 mg Finasteride (Proscar) 5 mg PO DAILY [facility] Last Admin: 08/01/18 09:50 Dose: 5 mg Hydrochlorothiazide (Hydrodiuril) 25 mg PO DAILY [facility] Last Admin: 08/01/18 09:49 Dose: 25 mg Nicotine (Nicoderm Cq) 1 patch TD DAILY [facility] Last Admin: 08/01/18 13:33 Dose: Not Given Pneumococcal Polyvalent Vaccine (Pneumovax 23 Vaccine) 0.5 ml IM .ONCE ONE Stop: 08/02/18 10:01 Rosuvastatin Calcium (Crestor) 5 mg PO HS [facility] Last Admin: 07/31/18 21:39 Dose: 5 mg Tamsulosin HCl (Flomax) 0.4 mg PO DAILY [facility] Last Admin: 08/01/18 09:49 Dose: 0.4 mg - Labs Labs: 08/01/18 08:08 08/01/18 08:08 PT 11.7 SECONDS (9.7-12.2) 07/30/18 18:19 INR 1.1 07/30/18 18:19 APTT 38.0 SECONDS (21-34) H 07/30/18 18:19 Attending/Attestation - Attestation I have personally seen and examined this patient.: Yes I have fully participated in the care of the patient.: Yes I have reviewed all pertinent clinical information, including history, physical exam and plan: Yes Notes (Text): Patient seen, examined case discussed with medical asst. Hospitalist service covering for Dr. CLINE who is away through August 04 Patient seen at bedside this morning. Patient denies acute complaints. Patient with is aware that he is arranged for cardiac cath today. Patient was started on gentle IV hydration given mild increase in creatinine from 1.0-1.2. Per review of today's cardiac cath cardiology has recommended for intervention for the RCA which is blocked. Patient changed to inpatient status given that he requires intervention for the right coronary artery which is blocked. Arrangements to be made by cardiology for therapeutic cardiac cath. Will need to follow-up with cardiology and comes in one is the plan for this catheterization. 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 Rivera---> Help appreciated * Lexiscan stress test: No EKG changes; awaiting nuclear stress test repor * As per Dr. Rivera, patient was noted to have an abnormal Catherization, RCA blockage * Plans for intervention for RCA blockage noted from diagnostic cath today. 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 The ejection fraction is 55-60%. Diastolic dysfunction. There is mild to moderate aortic regurgitation. There is no mitral valve regurgitation noted. There is no tricuspid valve regurgtation noted. There is no pulmonic valvular regurgitation - Lipid Panel: TGL:101, Cholesterol: 209, LDL: 122 and HDL: 58 - TSH 3rd generation 2.73 - HgbA1c: 6.3 - Troponin negative X3 Medications: * Initiation of plavix 75mg PO daily (08/01/18) in light of diagnostic cath findings and plan for intervention * Continue ASA 81mg PO daily * Continue atenolol 25mg PO daily * Crestor 5mg PO HS Status: Acute (2) Hypertension Assessment & Plan: Continue home medications: - Norvasc 5mg PO daily - Atenolol 25mg PO daily - HCTZ 25mg PO daily Status: Acute (3) Benign prostate hyperplasia Assessment & Plan: Flomax 0.4mg PO daily Finastride 5mg PO daily Status: Acute (4) Glucose intolerance (impaired glucose tolerance) Assessment & Plan: HgbA1C: 6.3 Accuchecks Status: Acute (5) Tobacco abuse Assessment & Plan: Teenager (3 cigarettes a day) Patient quit tobacco 3 months ago Nicotine 7mg/24 hr 1 patch daily Status: Acute (6) Creatinine elevation Assessment & Plan: Cr: 1.2; 0.2 point elevation from admission Cr baseline * NS @ 50mls/cc for 6 hours * Will continue to monitor with labs Status: Acute (7) Prophylactic measure Assessment & Plan: GI: Pepcid 20mg PO QD DVT: Lovenox 40mg SC daily: will be held at 08/01/18 at 00:00 for cardiac catherization Disposition: As per Dr. Rivera, patient was noted to have an abnormal Catherization, RCA blockage - Plans for PCI Disposition: Changed inpatient status given the abnormal EKG status changes in light of patient with high risk for cardio vascular events and cardiac risk requiring therapeutic intervention given the results of diagnostic cath showing RCA involvement. Cardiology to make arrangements for interventional cath. 08/01/18 18:23
[2018-08-01] MEDS ORDERED: Lidocaine 2% MPF (5 ml) Inj ONE (11:37)
--- NOTE | 2018-08-02 05:22 | CARD ---
APPROVED REPORT Date of service: 07/31/2018 Protocol: LEXISCAN Test Type: LEXISCAN STRESS Test Indications: EKG CHANGES Medical History: CP Target HR: 142 bpm Resting ECG: abnormal Resting Heart Rate: 82 bpm Resting Blood Pressure: 142/80mmHg submaximum (85%): 121 bpm TEST SUMMARY PREINFSNHYPERV.31:590.00..160881/80.1. INFUSIONDOSE 100:300.00.01.081/.2. [id number]:520.00.01.0106/.0. PROCEDURE Pharmacologic stress testing was performed using 0.4mg per 5ml of regadenoson given intravenously over 7-10 seconds. POST EXERCISE Reason for Termination: Protocol Completed Target HR: No Max HR: 81 bpm 75% of Maximum Predicted HR: 142 bpm Exercise duration: 00:30 min:sec, 0 Stage Exercise capacity: 1.0METs Max Blood Pressure: 142/80mmHg Blood Pressure response to exercise: normal resting BP - appropriate response Heart Rate response to exercise: appropriate Chest Pain: No, none Angina index: 0 Arrhythmia: No, none ST Change: No, none Deviation: 0 mm INTERPRETATION Stress EKG Conclusion: Nuclear report to follow EXAM: Myocardial Perfusion REST/STRESS Imaging Protocol The imaging protocol used to acquire images was Rest Tc-99m/stress Tc-99m 1 day Rest Spect myocardial perfusion imaging was performed in supine position 45 minutes following the injection of 13.1 mCi of Tc-99 Myoview. Gated Stress Spect was performed 46 minutes after intravenous 32.5 mCi Tc-99 Myoview injection. The images were gated to evaluate regional wall motion and calculate ventricular ejection fraction.Images were reconstructed using backfilter projection method in short horizontal and verticle long axis. Spect slices were generated. RESTING DATA EDV93.04kaLR0.80L/min ESV43.00mlMyocardial Yzvv800.00g Av. Heart Rate76.00bpm EF54.00% STRESS DATA EDV94.39uwSQ4.90L/min ESV48.00mlMyocardial Dxpn953.00g EF49.00% Regional WT score at stress:2.00 Regional WM score at stress:1.00 Summed WT score at stress:20.00 Av. Heart Rate83.00bpmSummed WM score at stress:18.00 LV Perf. Quant 17 Seg. SSS0.00 17 Seg. SRS0.00 17 Seg. SDS0.00 Stress Defect Extent (% LAD)0.00Rest Defect Extent (% LAD)0.00Rev. Defect Extent (% LAD)0.00 Stress Defect Extent (% LCX)0.00Rest Defect Extent (% LCX)0.00Rev. Defect Extent (% LCX)0.00 Stress Defect Extent (% RCA)0.00Rest Defect Extent (% RCA)0.00Rev. Defect Extent (% RCA)0.00 Stress Defect Extent (% ANTONIA)0.00Rest Defect Extent (% ANTONIA)0.00Rev. Defect Extent (% ANTONIA)0.00 Other Information Quality:Good IMPRESSION Normal Myocardial Perfusion exercise stress study Left Ventricle LV Function:Left ventricle systolic function is normal. The Ejection Fraction is >55%. Metabolism/Perfusion There are no perfusion/metabolism defects. Conclusion 1. Normal Lexiscan Nuclear stress test. Normal EF
--- NOTE | 2018-08-02 07:01 | CARDCATH ---
PROCEDURE DATE: 08/01/2018 LEFT HEART CATHETERIZATION CLINICAL INDICATIONS: The patient is a 78-year-old male who presented with chest pain and abnormal EKG. The income tax consultant hydro technician, Dr. Rivera asked me to perform left heart catheterization as indicated clinically. The procedure and its risks were fully explained to the patient after reviewing his medical history and performing a physical examination. PROCEDURE: After local infiltration with 1% lidocaine, a 6-Irish sheath was placed in the right femoral artery. Left and right coronary angiography was performed with 6-Irish JL4 and JR4 diagnostic catheter. Left ventriculogram was performed with 6-Irish pigtail catheter. The patient tolerated the procedure well without any complications. ANGIOGRAPHIC FINDINGS: Selective injection of the left coronary artery revealed the left main to be a long normal vessel that bifurcated into a medium-sized LAD and a medium-sized dominant circumflex artery. The entire left coronary circulation was angiographically unremarkable. Selective injection of the right coronary artery revealed a small caliber codominant vessel that had 80% stenosis in its middle portion. Left ventriculogram performed in the LAWSON projection revealed inferior wall hypokinesis. Overall ejection fraction was estimated at 55%. CONCLUSION: Single-vessel coronary artery disease with 80% stenosis of the mid RCA and a small caliber vessel. RECOMMENDATION: The patient will be observed in telemetry and the case will be discussed with Dr. Rivera who will decide about any future intervention on the right coronary artery and the patient will be maintained on antiplatelet as well as his antianginal medication as well as beta-blockers. Kaiden Albert MD cc: Regis Rivera MD
--- NOTE | 2018-08-02 07:25 | CP.PCM.CON ---
History of Present Illness - History of Present Illness History of Present Illness: 78 year old Polish creole speaking male with a past medical history of hypertension, bph and speech impediment presents to the hospital after being referred here by me. Patient was seen in the office and had an ekg done that showed some changes in the anterior leads. Patient was told to come into the hospital to stay for cardiac catherization in the morning. . Patient denies any chest pain, shortness of breath, fevers, chills, headaches, dizziness, changes in vision, palpitations, dyspnea, or any other complaints. PMD: Dr. Miranda Mohs Surgeon: Dr. Rivera Medical history: htn, bph, speech impediment Surgical history: Inguinal hernia repair Allergies: Denies Medications: Hydrochlorthiazide 25mg PO DAILY Dicyclomine 20mg PO TID Aspirin 81mg PO DAILY Atenolol 25mg PO DAILY Tamsulosin .4mg PO DAILY Dicyclomine 20mg PO TID Amlodipine 5mg PO DAILY Finasteride 5mg PO DAILY Social history: Smoker since a teenager ( 3 cigarettes a day). Denies alcohol use. Denies illict drug use. Lives with in [place]. Retired for 1 year (Former [employer]). Moved from [facility] approximately 20 years ago. Contact info: Bret (Sister): [phone] Present on Admission - Present on Admission Any Indicators Present on Admission: No Review of Systems - Constitutional Constitutional: absent: Chills, Daytime Sleepiness, Frequent Falls, Headache, Night Sweats, Weakness - EENT Eyes: absent: Blurred Vision, Diplopia, Discharge, Loss of Peripheral Vision, Loss of Vision Ears: absent: Ear Discharge, Dizziness Nose/Mouth/Throat: absent: Nasal Congestion, Nose Pain, Bleeding Gums, Dysphagia, Mouth Pain, Facial Pain - Cardiovascular Cardiovascular: absent: Chest Pain, Edema, Irregular Heart Rhythm, Leg Edema, Orthopnea, Palpitations, Pedal Edema, Syncope - Respiratory Respiratory: absent: Cough, Dyspnea, Hemoptysis, Change in Mucous Color - Gastrointestinal Gastrointestinal: absent: Belching, Change in Stool Character, Dysphagia, Melena, Nausea, Vomiting - Genitourinary Genitourinary: absent: Change in Urinary Stream, Nocturia, Urinary Urgency, Bladder Distension - Musculoskeletal Musculoskeletal: absent: Arthralgias, Atrophy, Myalgias, Neck Pain, Tingling - Integumentary Integumentary: absent: Bleeding Lesions, Lesions, New Lesions, Striae, Swelling - Neurological Neurological: absent: Abnormal Hearing, Confusion, Loss of Vision, Tingling, Tremor, Vertigo, Weakness - Psychiatric Psychiatric: absent: Anxiety, Behavioral Changes, Homicidal Ideation, Panic Attacks - Endocrine Endocrine: absent: Polydipsia, Polyphagia, Polyuria - Hematologic/Lymphatic Hematologic: absent: Easy Bleeding, Easy Bruising Physical Exam - Head Exam Head Exam: ATRAUMATIC, NORMAL INSPECTION, NORMOCEPHALIC - Eye Exam Eye Exam: EOMI, Normal appearance, PERRL. absent: Periorbital tenderness Pupil Exam: NORMAL ACCOMODATION, PERRL. absent: Irregular, Unequal - ENT Exam ENT Exam: Mucous Membranes Moist, Normal Exam, Normal Oropharynx. absent: TM's Normal Bilaterally - Respiratory Exam Respiratory Exam: Clear to Auscultation Bilateral, NORMAL BREATHING PATTERN. absent: Chest Wall Tenderness, Prolonged Expiratory Phase, Respiratory Distress - Cardiovascular Exam Cardiovascular Exam: REGULAR RHYTHM, +S1, +S2. absent: JVD, RRR, +S4 - GI/Abdominal Exam GI & Abdominal Exam: Normal Bowel Sounds, Soft. absent: Hypoactive Bowel Sounds, Organomegaly, Tenderness - Extremities Exam Extremities exam: Positive for: normal inspection. Negative for: full ROM, pedal edema - Back Exam Back exam: absent: paraspinal tenderness - Neurological Exam Neurological exam: Alert, CN II-XII Intact, Normal Gait, Oriented x3 - Psychiatric Exam Psychiatric exam: Normal Affect, Normal Mood - Skin Skin Exam: Dry, Intact, Normal Color Assessment & Plan - Assessment and Plan (Free Text) Assessment: 78 year old Polish creole speaking male with a past medical history of h ypertension, bph and speech impediment presents to the hospital after being referred here by his Mohs Surgeon Dr. Rivera Plan: 1.EKG changes in ST elevations V1, V2, V3 -Seen in office by Dr. Rivera and had ST elevations on V1-V3. -Received Aspirin 325mg PO AND Plavix 300mg in the E.D. 2.Hypertension -Continue Norvasc 5mg PO DAILY -Continue Hydrochlorothiazide 25mg PO DAILY -Continue Atenolol 25mg PO DAILY ANN MARIE 3.hx of BPH -Continue Flomax .4mg PO DAILY ANN MARIE -Continue Proscar 5mg PO DAILY ANN MARIE PPX -Pepcid -SCD's Patient s/p Cardiac cath RCA 80% mid stenosis Medical management for now PCI as out patient F/U in my office in 1 week Past Patient History - Past Medical History & Family History Past Medical History?: Yes - Past Social History Smoking Status: Former Smoker - CARDIAC Hx Cardiac Disorders: Yes Hx Hypertension: Yes Other/Comment: Abnormal EKG - PULMONARY Hx Respiratory Disorders: Yes Hx Chronic Obstructive Pulmonary Disease (COPD): Yes - NEUROLOGICAL Hx Neurological Disorder: No - HEENT Hx HEENT Problems: Yes (GLASSES) Hx Cataracts: Yes - RENAL Hx Chronic Kidney Disease: No - ENDOCRINE/METABOLIC Hx Endocrine Disorders: No - HEMATOLOGICAL/ONCOLOGICAL Hx Blood Disorders: No - INTEGUMENTARY Hx Dermatological Problems: No - MUSCULOSKELETAL/RHEUMATOLOGICAL Hx Musculoskeletal Disorders: No Hx Falls: No - GASTROINTESTINAL Hx Gastrointestinal Disorders: Yes Other/Comment: right inguinal hernia repair - GENITOURINARY/GYNECOLOGICAL Hx Genitourinary Disorders: Yes Hx Prostate Problems: Yes (BPH) - PSYCHIATRIC Hx Psychophysiologic Disorder: No Hx Substance Use: No - SURGICAL HISTORY Hx Surgeries: Yes Hx Cataract Extraction: Yes (BILATERAL IOLI) Other/Comment: CYSTO PROSTATE BIOPSY - ANESTHESIA Hx Anesthesia: Yes Hx Anesthesia Reactions: No Hx Malignant Hyperthermia: No Meds Allergies/Adverse Reactions: Allergies Allergy/AdvReac Type Severity Reaction Status Date / Time No Known Allergies Allergy Verified 07/30/18 17:39 - Medications Medications: Current Medications Amlodipine Besylate (Norvasc) 5 mg PO DAILY [facility] Last Admin: 08/01/18 09:49 Dose: 5 mg Aspirin (Aspirin Chewable) 81 mg PO DAILY [facility] Last Admin: 08/01/18 10:43 Dose: Not Given Atenolol (Tenormin) 25 mg PO DAILY [facility] Last Admin: 08/01/18 09:49 Dose: 25 mg Clopidogrel Bisulfate (Plavix) 75 mg PO DAILY [facility] Enoxaparin Sodium (Lovenox) 40 mg SC DAILY [facility] Last Admin: 07/31/18 10:28 Dose: Not Given Famotidine (Pepcid) 20 mg PO DAILY [facility] Last Admin: 08/01/18 09:49 Dose: 20 mg Finasteride (Proscar) 5 mg PO DAILY [facility] Last Admin: 08/01/18 09:50 Dose: 5 mg Hydrochlorothiazide (Hydrodiuril) 25 mg PO DAILY [facility] Last Admin: 08/01/18 09:49 Dose: 25 mg Nicotine (Nicoderm Cq) 1 patch TD DAILY [facility] Last Admin: 08/01/18 13:33 Dose: Not Given Pneumococcal Polyvalent Vaccine (Pneumovax 23 Vaccine) 0.5 ml IM .ONCE ONE Stop: 08/02/18 10:01 Rosuvastatin Calcium (Crestor) 5 mg PO HS [facility] Last Admin: 08/01/18 21:32 Dose: 5 mg Tamsulosin HCl (Flomax) 0.4 mg PO DAILY [facility] Last Admin: 08/01/18 09:49 Dose: 0.4 mg Results - Vital Signs Recent Vital Signs: Last Vital Signs Temp 98.4 F 08/02/18 04:00 Pulse 69 08/02/18 04:07 Resp 20 08/02/18 04:00 BP 131/63 08/02/18 04:00 Pulse Ox 95 08/02/18 04:00 - Labs Result Diagrams: 08/01/18 08:08 08/01/18 08:08 Labs: Laboratory Results - last 24 hr 08/01/18 08/01/18 08/01/18 08:08 08:08 14:30 WBC 5.6 RBC 4.98 Hgb 14.0 Hct 42.1 MCV 84.5 MCH 28.0 MCHC 33.2 RDW 13.6 Plt Count 149 MPV 10.0 Neut % (Auto) 53.2 Lymph % (Auto) 34.6 Phillips % (Auto) 8.9 Eos % (Auto) 2.6 Baso % (Auto) 0.7 Neut # (Auto) 3.0 Lymph # (Auto) 1.9 Phillips # (Auto) 0.5 Eos # (Auto) 0.1 Baso # (Auto) 0.0 Sodium 134 Potassium 4.0 Chloride 99 Carbon Dioxide 29 Anion Gap 11 BUN 24 H Creatinine 1.2 Est GFR ( Amer) > 60 Est GFR (Non-Af Amer) 59 POC Glucose (mg/dL) 89 Random Glucose 93 Calcium 9.6 Phosphorus 3.7 Magnesium 1.8 Total Bilirubin 0.6 AST 24 ALT 10 L Alkaline Phosphatase 103 Total Protein 7.7 Albumin 4.0 Globulin 3.7 Albumin/Globulin Ratio 1.1 08/01/18 08/01/18 08/02/18 16:53 21:37 00:24 WBC RBC Hgb Hct MCV MCH MCHC RDW Plt Count MPV Neut % (Auto) Lymph % (Auto) Phillips % (Auto) Eos % (Auto) Baso % (Auto) Neut # (Auto) Lymph # (Auto) Phillips # (Auto) Eos # (Auto) Baso # (Auto) Sodium Potassium Chloride Carbon Dioxide Anion Gap BUN Creatinine Est GFR ( Amer) Est GFR (Non-Af Amer) POC Glucose (mg/dL) 144 H 88 99 Random Glucose Calcium Phosphorus Magnesium Total Bilirubin AST ALT Alkaline Phosphatase Total Protein Albumin Globulin Albumin/Globulin Ratio 08/02/18 06:24 WBC RBC Hgb Hct MCV MCH MCHC RDW Plt Count MPV Neut % (Auto) Lymph % (Auto) Phillips % (Auto) Eos % (Auto) Baso % (Auto) Neut # (Auto) Lymph # (Auto) Phillips # (Auto) Eos # (Auto) Baso # (Auto) Sodium Potassium Chloride Carbon Dioxide Anion Gap BUN Creatinine Est GFR ( Amer) Est GFR (Non-Af Amer) POC Glucose (mg/dL) 100 Random Glucose Calcium Phosphorus Magnesium Total Bilirubin AST ALT Alkaline Phosphatase Total Protein Albumin Globulin Albumin/Globulin Ratio
[2018-08-02 07:52] LABS: BASO % 0.6 % (0.0-2.0); EOS # 0.1 K/uL (0.0-0.7); EOS % 1.8 % (0.0-4.0); HEMOGLOBIN 13.4 g/dL (12.0-18.0); LYMPH # 1.9 K/uL (1.0-4.3); LYMPH % 30.9 % (20.0-40.0); MEAN CELL VOLUME 84.5 fL (80.0-94.0); MEAN CORPUSCULAR HEMOGLOBIN 28.7 pg (27.0-31.0); MEAN PLATELET VOLUME 9.9 fL (7.2-11.7); MONO # 0.7 K/uL (0.0-0.8); MONO % 11.7 % (0.0-10.0); NEUT # 3.4 K/uL (1.8-7.0); NRBC % 0.1 % (0.0-2.0); RBC 4.68 Mil/uL (4.40-5.90); RED CELL DISTRIBUTION WIDTH 13.9 % (11.5-14.5); WHITE BLOOD COUNT 6.3 K/uL (4.8-10.8)
[2018-08-02 08:25] LABS: ALBUMIN 3.7 g/dL (3.5-5.0); ALT/SGPT 17 U/L (21-72); AST/SGOT 29 U/L (17-59); BLOOD UREA NITROGEN 24 mg/dL (9-20); CALCIUM 9.2 mg/dl (8.6-10.4); GFR NON-AFRICAN AMERICAN 53
[2018-08-02] MEDS ORDERED: Pneumococcal 23-Valent Vaccine IM ONE (10:00)
--- NOTE | 2018-08-02 11:09 | CP.PCM.PN ---
<Polina Delgado - Last Filed: 08/02/18 16:41> Subjective - Date & Time of Evaluation Date of Evaluation: 08/02/18 Time of Evaluation: 11:08 - Subjective Subjective: Progress note for Dr. Rivera Patient was seen and examined at bedside in no acute distress. Patient reports he is feeling well and has no complaints. He denies chest pain, palpitations, sob, n/v, abdominal pain, leg pain, and swelling. Objective - Vital Signs/Intake and Output Vital Signs (last 24 hours): Temp Pulse Resp BP Pulse Ox 97.3 F L 79 20 137/68 96 08/02/18 07:40 08/02/18 08:20 08/02/18 07:40 08/02/18 07:40 08/02/18 07:40 Intake and Output: 08/02/18 08/02/18 06:59 18:59 Intake Total 1300 Balance 1300 - Medications Medications: Current Medications Amlodipine Besylate (Norvasc) 5 mg PO DAILY [facility] Last Admin: 08/02/18 10:22 Dose: 5 mg Aspirin (Aspirin Chewable) 81 mg PO DAILY [facility] Last Admin: 08/02/18 10:22 Dose: 81 mg Atenolol (Tenormin) 25 mg PO DAILY [facility] Last Admin: 08/02/18 10:21 Dose: 25 mg Clopidogrel Bisulfate (Plavix) 75 mg PO DAILY [facility] Last Admin: 08/02/18 10:22 Dose: 75 mg Enoxaparin Sodium (Lovenox) 40 mg SC DAILY [facility] Last Admin: 07/31/18 10:28 Dose: Not Given Famotidine (Pepcid) 20 mg PO DAILY [facility] Last Admin: 08/02/18 10:22 Dose: 20 mg Finasteride (Proscar) 5 mg PO DAILY [facility] Last Admin: 08/02/18 10:22 Dose: 5 mg Hydrochlorothiazide (Hydrodiuril) 25 mg PO DAILY [facility] Last Admin: 08/02/18 10:22 Dose: 25 mg Nicotine (Nicoderm Cq) 1 patch TD DAILY [facility] Last Admin: 08/02/18 10:23 Dose: 1 patch Rosuvastatin Calcium (Crestor) 5 mg PO HS [facility] Last Admin: 08/01/18 21:32 Dose: 5 mg Tamsulosin HCl (Flomax) 0.4 mg PO DAILY [facility] Last Admin: 08/02/18 10:21 Dose: 0.4 mg - Labs Labs: 08/02/18 07:33 08/02/18 07:33 PT 11.7 SECONDS (9.7-12.2) 07/30/18 18:19 INR 1.1 07/30/18 18:19 APTT 38.0 SECONDS (21-34) H 07/30/18 18:19 - Constitutional Appears: No Acute Distress - Head Exam Head Exam: ATRAUMATIC, NORMAL INSPECTION - Eye Exam Eye Exam: EOMI, Normal appearance - ENT Exam ENT Exam: Mucous Membranes Moist - Respiratory Exam Respiratory Exam: Clear to Ausculation Bilateral, NORMAL BREATHING PATTERN. absent: Rales, Rhonchi, Wheezes - Cardiovascular Exam Cardiovascular Exam: REGULAR RHYTHM, +S1, +S2 - GI/Abdominal Exam GI & Abdominal Exam: Soft, Normal Bowel Sounds. absent: Distended, Tenderness - Extremities Exam Extremities Exam: Normal Inspection. absent: Pedal Edema, Tenderness - Neurological Exam Neurological Exam: Alert, Awake, Oriented x3 - Psychiatric Exam Psychiatric exam: Normal Affect, Normal Mood - Skin Skin Exam: Dry, Normal Color, Warm Assessment and Plan - Assessment and Plan (Free Text) Plan: 78 year old Bengali creole speaking male with a past medical history of hypertension, bph and speech impediment presents to the hospital after being referred here by his Supervisor Cell [employer] Dr. Rivera. Patient was seen earlier today in the office and had an ekg done that showed some changes in the anterior leads. 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 The ejection fraction is 55- 60%. Diastolic dysfunction. There is mild to moderate aortic regurgitation. There is no mitral valve regurgitation noted. There is no tricuspid valve regurgtation noted. There is no pulmonic valvular regurgitation - Lipid Panel: T, Cholesterol: 209, LDL: 122 and HDL: 58 - TSH 3rd generation 2.73 - Troponin negative X3 - Lexiscan stress test: No EKG changes; awaiting nuclear stress test report - Cardiac cath (08/01): RCA 80% mid stenosis - Continue Plavix 75mg PO daily, ASA 81mg PO daily, Atenolol 25mg PO daily, Crestor 20 mg PO HS * Planned for PCI tomorrow morning at 10 am at [facility]. NPO e xcept meds after midnight. Patient will return to [facility] after procedure tomorrow. Case discussed with Dr. Miguel Puildo, PGY2 <Elena Colmenares V - Last Filed: 08/03/18 19:28> Objective - Vital Signs/Intake and Output Vital Signs (last 24 hours): Temp Pulse Resp BP Pulse Ox 98.7 F 86 20 146/65 94 L 08/03/18 07:00 08/03/18 07:00 08/03/18 07:00 08/03/18 07:00 08/03/18 07:00 - Medications Medications: Current Medications Amlodipine Besylate (Norvasc) 5 mg PO DAILY [facility] Last Admin: 08/03/18 06:59 Dose: 5 mg Aspirin (Aspirin Chewable) 81 mg PO DAILY [facility] Last Admin: 08/03/18 06:59 Dose: 81 mg Atenolol (Tenormin) 25 mg PO DAILY [facility] Last Admin: 08/03/18 06:58 Dose: 25 mg Clopidogrel Bisulfate (Plavix) 75 mg PO DAILY [facility] Last Admin: 08/03/18 07:00 Dose: 75 mg Enoxaparin Sodium (Lovenox) 40 mg SC DAILY [facility] Last Admin: 07/31/18 10:28 Dose: Not Given Famotidine (Pepcid) 20 mg PO DAILY [facility] Last Admin: 08/02/18 10:22 Dose: 20 mg Finasteride (Proscar) 5 mg PO DAILY [facility] Last Admin: 08/02/18 10:22 Dose: 5 mg Hydrochlorothiazide (Hydrodiuril) 25 mg PO DAILY [facility] Last Admin: 08/02/18 10:22 Dose: 25 mg Sodium Chloride (Sodium Chloride 0.9%) 1,000 mls @ 80 mls/hr IV .[id number] [facility] Nicotine (Nicoderm Cq) 1 patch TD DAILY [facility] Last Admin: 08/02/18 10:23 Dose: 1 patch Rosuvastatin Calcium (Crestor) 20 mg PO HS [facility] Last Admin: 08/02/18 21:28 Dose: 20 mg Tamsulosin HCl (Flomax) 0.4 mg PO DAILY [facility] Last Admin: 08/02/18 10:21 Dose: 0.4 mg - Labs Labs: 08/02/18 07:33 08/02/18 07:33 PT 11.7 SECONDS (9.7-12.2) 07/30/18 18:19 INR 1.1 07/30/18 18:19 APTT 38.0 SECONDS (21-34) H 07/30/18 18:19 Attending/Attestation - Attestation I have personally seen and examined this patient.: Yes I have fully participated in the care of the patient.: Yes I have reviewed all pertinent clinical information, including history, physical exam and plan: Yes Notes (Text): This is late computer entry for 08/02/18 Patient seen, examined case discussed with outside medical sales representative. Hospitalist service covering for Dr. Miranda who is away through August 05 Patient seen at bedside this morning. Patient denies acute complaints with assistance in translation with Joseph Baltazar speaking nurse. Patient is awaiting intervention for the right coronary artery which is blocked; cardiology has arranged for PCI for Steve on 08/03/18. Patient is on aspirin, plavix, beta marilyn, statin, calcium channel, diuretic therapy. He is aware he has a strong risk of becoming an overt diabetes based on his a1c: 6.3 and strongly recommended to make diet modifications to reduce his risk. 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 Rivera---> Help appreciated * Lexiscan stress test: No EKG changes; awaiting nuclear stress test repor * As per Dr. Rivera, patient was noted to have an abnormal Catherization, RCA blockage * Plans for intervention for RCA blockage noted from diagnostic cath today. 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 The ejection fraction is 55-60%. Diastolic dysfunction. There is mild to moderate aortic regurgitation. There is no mitral valve regurgitation noted. There is no tricuspid valve regurgtation noted. There is no pulmonic valvular regurgitation - Lipid Panel: TGL:101, Cholesterol: 209, LDL: 122 and HDL: 58 - TSH 3rd generation 2.73 - HgbA1c: 6.3 - Troponin negative X3 Medications: * Initiation of plavix 75mg PO daily (08/01/18) in light of diagnostic cath fin dings and plan for intervention * Continue ASA 81mg PO daily * Continue atenolol 25mg PO daily * Crestor 20mg PO HS Status: Acute (2) Hypertension Assessment & Plan: Continue home medications: * Norvasc 5mg PO daily * Atenolol 25mg PO daily * HCTZ 25mg PO daily Status: Chronic (3) Benign prostate hyperplasia Assessment & Plan: * Flomax 0.4mg PO daily * Finastride 5mg PO daily Status: Acute (4) Glucose intolerance (impaired glucose tolerance) Assessment & Plan: * HgbA1C: 6.3 * Accuchecks * Counselled in regards to reducing his risk of becoming overt diabetic. Status: Chronic (5) Tobacco abuse Assessment & Plan: * Teenager (3 cigarettes a day) * Patient quit tobacco 3 months ago * Nicotine 7mg/24 hr 1 patch daily Status: Acute (6) Creatinine elevation Assessment & Plan: * monitor BUN/Cr Status: Acute (7) Prophylactic measure Assessment & Plan: * GI: Pepcid 20mg PO QD Disposition: Changed inpatient status given the abnormal EKG status changes in light of patient with high risk for cardio vascular events and cardiac risk requiring therapeutic intervention given the results of diagnostic cath showing RCA involvement. Patient scheduled for for intervention with cardiology.
--- NOTE | 2018-08-02 13:33 | CP.PCM.PN ---
<Phyllis Gunn - Last Filed: 08/02/18 16:49> Subjective - Date & Time of Evaluation Date of Evaluation: 08/02/18 Time of Evaluation: 13:20 - Subjective Subjective: PGY3 progress note for Dr. Colmenares (covering for Dr. Miranda) Pt was seen and examined at bedside. No acute events overnight. Pt underwent cardiac cath on 08/01, results showing 80% blockage in RCA. Currently, no CP, SOB, abd pain, N/V/D/C, F/C, no pain at femoral cath site. Objective - Vital Signs/Intake and Output Vital Signs (last 24 hours): Temp Pulse Resp BP Pulse Ox 97.3 F L 79 20 137/68 96 08/02/18 07:40 08/02/18 08:20 08/02/18 07:40 08/02/18 07:40 08/02/18 07:40 Intake and Output: 08/02/18 08/02/18 06:59 18:59 Intake Total 1300 Balance 1300 - Medications Medications: Current Medications Amlodipine Besylate (Norvasc) 5 mg PO DAILY [facility] Last Admin: 08/02/18 10:22 Dose: 5 mg Aspirin (Aspirin Chewable) 81 mg PO DAILY [facility] Last Admin: 08/02/18 10:22 Dose: 81 mg Atenolol (Tenormin) 25 mg PO DAILY [facility] Last Admin: 08/02/18 10:21 Dose: 25 mg Clopidogrel Bisulfate (Plavix) 75 mg PO DAILY [facility] Last Admin: 08/02/18 10:22 Dose: 75 mg Enoxaparin Sodium (Lovenox) 40 mg SC DAILY [facility] Last Admin: 07/31/18 10:28 Dose: Not Given Famotidine (Pepcid) 20 mg PO DAILY [facility] Last Admin: 08/02/18 10:22 Dose: 20 mg Finasteride (Proscar) 5 mg PO DAILY [facility] Last Admin: 08/02/18 10:22 Dose: 5 mg Hydrochlorothiazide (Hydrodiuril) 25 mg PO DAILY [facility] Last Admin: 08/02/18 10:22 Dose: 25 mg Nicotine (Nicoderm Cq) 1 patch TD DAILY [facility] Last Admin: 08/02/18 10:23 Dose: 1 patch Rosuvastatin Calcium (Crestor) 20 mg PO [facility] Tamsulosin HCl (Flomax) 0.4 mg PO DAILY [facility] Last Admin: 08/02/18 10:21 Dose: 0.4 mg - Labs Labs: 08/02/18 07:33 08/02/18 07:33 PT 11.7 SECONDS (9.7-12.2) 07/30/18 18:19 INR 1.1 07/30/18 18:19 APTT 38.0 SECONDS (21-34) H 07/30/18 18:19 - Constitutional Appears: Non-toxic, No Acute Distress - Head Exam Head Exam: ATRAUMATIC, NORMOCEPHALIC - ENT Exam ENT Exam: Mucous Membranes Moist - Respiratory Exam Respiratory Exam: Clear to Ausculation Bilateral. absent: Rales, Rhonchi, Wheezes - Cardiovascular Exam Cardiovascular Exam: REGULAR RHYTHM, +S1, +S2. absent: Gallop, Rubs, Murmur - GI/Abdominal Exam GI & Abdominal Exam: Soft, Normal Bowel Sounds. absent: Distended, Firm, Guarding, Rigid, Tenderness - Extremities Exam Extremities Exam: Pedal Edema, Tenderness - Neurological Exam Neurological Exam: Alert, Awake, CN II-XII Intact, Oriented x3 - Psychiatric Exam Psychiatric exam: Normal Affect, Normal Mood - Skin Skin Exam: Dry, Intact, Normal Color, Warm Assessment and Plan - Assessment and Plan (Free Text) Assessment: (1) Acute electrocardiogram changes Assessment & Plan: Consultation: * Cardiology, Dr. Rivera---> Help appreciated -Lexiscan stress test: No EKG changes; awaiting nuclear stress test report -Cardiac cath done on 08/01 showed 80% RCA blockage - Plans for PCI tomorrow morning at 10 am at [facility] Labs/Imaging: - WILMA score of 4: 20% risk at 14 days of [id number] new or recurrent PA or severe recurrent ischemia requiring urgent revascularization - EKG: ST elevation in lead V3 and T-wave inversion in V2 at it director office 07/30/18 - EKG(inpatient): reconfirms ST changes in lead V3 and T-wave inversion in lead V2 - Echocardiogram (08/01/18): LV systolic function is normal. The ejection fraction is 55-60%. Diastolic dysfunction. There is mild to moderate aortic regurgitation. There is no mitral valve regurgitation noted. There is no tricuspid valve regurgtation noted. There is no pulmonic valvular regurgitation - Lipid Panel: TGL:101, Cholesterol: 209, LDL: 122 and HDL: 58 - TSH 3rd generation 2.73 - HgbA1c: 6.3 - Troponin negative X3 Medications: * Initiation of plavix 75mg PO daily (08/01/18) * Continue ASA 81mg PO daily * Continue atenolol 25mg PO daily * Crestor: increased from 5 mg to 20 mg po hs (2) Hypertension Assessment & Plan: Continue home medications: - Norvasc 5mg PO daily - Atenolol 25mg PO daily - HCTZ 25mg PO daily (3) Benign prostate hyperplasia Assessment & Plan: Flomax 0.4mg PO daily Finastride 5mg PO daily (4) Glucose intolerance (impaired glucose tolerance) Assessment & Plan: HgbA1C: 6.3 Accuchecks Recommend low fats, low carb diet and increased exercise (5) Tobacco abuse Assessment & Plan: Teenager (3 cigarettes a day) Patient quit tobacco 3 months ago Nicotine 7mg/24 hr 1 patch daily (6) Creatinine elevation Assessment & Plan: Cr: 1.2; 0.2 point elevation from admission Cr baseline * NS @ 50mls/cc for 6 hours * Will continue to monitor with labs (7) Prophylactic measure Assessment & Plan: GI: Pepcid 20mg PO QD DVT: Lovenox 40mg SC daily: will be held at 08/01/18 at 00:00 for cardiac catherization Disposition: As per Dr. Rivera, patient was noted to have an abnormal Catherization, RCA blockage - Plans for PCI tomorrow morning - Person to notify DaughterSuzanne:[phone] All plans and management discussed with Dr. Colmenares <Elena Colmenares V - Last Filed: 08/03/18 19:30> Objective - Vital Signs/Intake and Output Vital Signs (last 24 hours): Temp Pulse Resp BP Pulse Ox 98.1 F 78 20 175/72 H 92 L 08/03/18 19:00 08/03/18 19:00 08/03/18 19:00 08/03/18 19:00 08/03/18 19:00 - Medications Medications: Current Medications Amlodipine Besylate (Norvasc) 5 mg PO DAILY [facility] Last Admin: 08/03/18 06:59 Dose: 5 mg Aspirin (Aspirin Chewable) 81 mg PO DAILY [facility] Last Admin: 08/03/18 06:59 Dose: 81 mg Atenolol (Tenormin) 25 mg PO DAILY [facility] Last Admin: 08/03/18 06:58 Dose: 25 mg Clopidogrel Bisulfate (Plavix) 75 mg PO DAILY [facility] Last Admin: 08/03/18 07:00 Dose: 75 mg Enoxaparin Sodium (Lovenox) 40 mg SC DAILY [facility] Last Admin: 07/31/18 10:28 Dose: Not Given Famotidine (Pepcid) 20 mg PO DAILY [facility] Last Admin: 08/02/18 10:22 Dose: 20 mg Finasteride (Proscar) 5 mg PO DAILY [facility] Last Admin: 08/02/18 10:22 Dose: 5 mg Hydrochlorothiazide (Hydrodiuril) 25 mg PO DAILY [facility] Last Admin: 08/02/18 10:22 Dose: 25 mg Sodium Chloride (Sodium Chloride 0.9%) 1,000 mls @ 80 mls/hr IV .[id number] [facility] Nicotine (Nicoderm Cq) 1 patch TD DAILY [facility] Last Admin: 08/02/18 10:23 Dose: 1 patch Rosuvastatin Calcium (Crestor) 20 mg PO HS [facility] Last Admin: 08/02/18 21:28 Dose: 20 mg Tamsulosin HCl (Flomax) 0.4 mg PO DAILY [facility] Last Admin: 08/02/18 10:21 Dose: 0.4 mg - Labs Labs: 08/02/18 07:33 08/02/18 07:33 PT 11.7 SECONDS (9.7-12.2) 07/30/18 18:19 INR 1.1 07/30/18 18:19 APTT 38.0 SECONDS (21-34) H 07/30/18 18:19 Attending/Attestation - Attestation I have personally seen and examined this patient.: Yes I have fully participated in the care of the patient.: Yes I have reviewed all pertinent clinical information, including history, physical exam and plan: Yes Notes (Text): This is late computer entry for 08/02/18 Patient seen, examined case discussed with medical technician assistant. Hospitalist service covering for Dr. Miranda who is away through August 05 Patient seen at bedside this morning. Patient denies acute complaints with assistance in translation with Joseph Baltazar speaking nurse. Patient is awaiting intervention for the right coronary artery which is blocked; cardiology has arranged for PCI for Steve on 08/03/18. Patient is on aspirin, plavix, beta marilyn, statin, calcium channel, diuretic therapy. He is aware he has a strong risk of becoming an overt diabetes based on his a1c: 6.3 and strongly recommended to make diet modifications to reduce his risk. 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 Rivera---> Help appreciated * Lexiscan stress test: No EKG changes; awaiting nuclear stress test repor * As per Dr. Rivera, patient was noted to have an abnormal Catherization, RCA blockage * Plans for intervention for RCA blockage noted from diagnostic cath today. Labs/Imaging: - WILMA score of 4: 20% risk at 14 days of [id number] new or recurrent PA or severe recurrent ischemia requiring urgent revascularization - EKG: ST elevation in lead V3 and T-wave inversion in V2 at it director office 07/30/18 - EKG(inpatient): reconfirms ST changes in lead V3 and T-wave inversion in lead V2 - Echocardiogram (08/01/18): LV systolic function is normal. The ejection fraction is 55-60%. Diastolic dysfunction. There is mild to moderate aortic regurgitation. There is no mitral valve regurgitation noted. There is no tricuspid valve regurgtation noted. There is no pulmonic valvular regurgitation - Lipid Panel: TGL:101, Cholesterol: 209, LDL: 122 and HDL: 58 - TSH 3rd generation 2.73 - HgbA1c: 6.3 - Troponin negative X3 Medications: * Initiation of plavix 75mg PO daily (08/01/18) in light of diagnostic cath findings and plan for intervention * Continue ASA 81mg PO daily * Continue atenolol 25mg PO daily * Crestor 20mg PO HS Status: Acute (2) Hypertension Assessment & Plan: Continue home medications: * Norvasc 5mg PO daily * Atenolol 25mg PO daily * HCTZ 25mg PO daily Status: Chronic (3) Benign prostate hyperplasia Assessment & Plan: * Flomax 0.4mg PO daily * Finastride 5mg PO daily Status: Acute (4) Glucose intolerance (impaired glucose tolerance) Assessment & Plan: * HgbA1C: 6.3 * Accuchecks * Counselled in regards to reducing his risk of becoming overt diabetic. Status: Chronic (5) Tobacco abuse Assessment & Plan: * Teenager (3 cigarettes a day) * Patient quit tobacco 3 months ago * Nicotine 7mg/24 hr 1 patch daily Status: Acute (6) Creatinine elevation Assessment & Plan: * monitor BUN/Cr Status: Acute (7) Prophylactic measure Assessment & Plan: * GI: Pepcid 20mg PO QD Disposition: Changed inpatient status given the abnormal EKG status changes in light of patient with high risk for cardio vascular events and cardiac risk requiring therapeutic intervention given the results of diagnostic cath showing RCA involvement. Patient scheduled for for intervention with cardiology.
[2018-08-03 06:01] VITALS: RESP 20
--- NOTE | 2018-08-03 11:55 | CP.PCM.PN ---
Subjective - Date & Time of Evaluation Date of Evaluation: 08/03/18 Time of Evaluation: 11:54 - Subjective Subjective: patient s/p RCA stent (LUCIANA) ambulate after 4pm today ASA, Statins and b blockers for life Plavix 75 daily for 1 year IV Hydration BP control Check labs in am Objective - Vital Signs/Intake and Output Vital Signs (last 24 hours): Temp Pulse Resp BP Pulse Ox 98.7 F 86 20 146/65 94 L 08/03/18 07:00 08/03/18 07:00 08/03/18 07:00 08/03/18 07:00 08/03/18 07:00 - Medications Medications: Current Medications Amlodipine Besylate (Norvasc) 5 mg PO DAILY [facility] Last Admin: 08/03/18 06:59 Dose: 5 mg Aspirin (Aspirin Chewable) 81 mg PO DAILY [facility] Last Admin: 08/03/18 06:59 Dose: 81 mg Atenolol (Tenormin) 25 mg PO DAILY [facility] Last Admin: 08/03/18 06:58 Dose: 25 mg Clopidogrel Bisulfate (Plavix) 75 mg PO DAILY [facility] Last Admin: 08/03/18 07:00 Dose: 75 mg Enoxaparin Sodium (Lovenox) 40 mg SC DAILY [facility] Last Admin: 07/31/18 10:28 Dose: Not Given Famotidine (Pepcid) 20 mg PO DAILY [facility] Last Admin: 08/02/18 10:22 Dose: 20 mg Finasteride (Proscar) 5 mg PO DAILY [facility] Last Admin: 08/02/18 10:22 Dose: 5 mg Hydrochlorothiazide (Hydrodiuril) 25 mg PO DAILY [facility] Last Admin: 08/02/18 10:22 Dose: 25 mg Sodium Chloride (Sodium Chloride 0.9%) 1,000 mls @ 80 mls/hr IV .[id number] [facility] Nicotine (Nicoderm Cq) 1 patch TD DAILY [facility] Last Admin: 08/02/18 10:23 Dose: 1 patch Rosuvastatin Calcium (Crestor) 20 mg PO HS [facility] Last Admin: 08/02/18 21:28 Dose: 20 mg Tamsulosin HCl (Flomax) 0.4 mg PO DAILY [facility] Last Admin: 08/02/18 10:21 Dose: 0.4 mg - Labs Labs: 08/02/18 07:33 08/02/18 07:33 PT 11.7 SECONDS (9.7-12.2) 07/30/18 18:19 INR 1.1 07/30/18 18:19 APTT 38.0 SECONDS (21-34) H 07/30/18 18:19
[2018-08-03] MEDS ORDERED: Sodium Chloride 0.9% 1,000 ML IV SCH (12:00)
--- NOTE | 2018-08-03 15:07 | CP.PCM.PN ---
<Diamond Barrera E - Last Filed: 08/03/18 16:13> Subjective - Date & Time of Evaluation Date of Evaluation: 08/03/18 Time of Evaluation: 08:40 - Subjective Subjective: Medicine note ( Dr. Colmenares's service covering for Dr. Miranda's service) Patient was seen and examined at bedside. Patient reports that he is doing well and has no complaints. Patient denies any acute issues or complaints. Patient denies any symptoms of chest pain, palpitations, shortness of breath, dizziness or syncope. Patient is aware that he is going to [place] for PCI today with Dr. rivera. Objective - Vital Signs/Intake and Output Vital Signs (last 24 hours): Temp Pulse Resp BP Pulse Ox 98.7 F 86 20 146/65 94 L 08/03/18 07:00 08/03/18 07:00 08/03/18 07:00 08/03/18 07:00 08/03/18 07:00 - Medications Medications: Current Medications Amlodipine Besylate (Norvasc) 5 mg PO DAILY [facility] Last Admin: 08/03/18 06:59 Dose: 5 mg Aspirin (Aspirin Chewable) 81 mg PO DAILY [facility] Last Admin: 08/03/18 06:59 Dose: 81 mg Atenolol (Tenormin) 25 mg PO DAILY [facility] Last Admin: 08/03/18 06:58 Dose: 25 mg Clopidogrel Bisulfate (Plavix) 75 mg PO DAILY [facility] Last Admin: 08/03/18 07:00 Dose: 75 mg Enoxaparin Sodium (Lovenox) 40 mg SC DAILY [facility] Last Admin: 07/31/18 10:28 Dose: Not Given Famotidine (Pepcid) 20 mg PO DAILY [facility] Last Admin: 08/02/18 10:22 Dose: 20 mg Finasteride (Proscar) 5 mg PO DAILY [facility] Last Admin: 08/02/18 10:22 Dose: 5 mg Hydrochlorothiazide (Hydrodiuril) 25 mg PO DAILY [facility] Last Admin: 08/02/18 10:22 Dose: 25 mg Sodium Chloride (Sodium Chloride 0.9%) 1,000 mls @ 80 mls/hr IV .[id number] [facility] Nicotine (Nicoderm Cq) 1 patch TD DAILY [facility] Last Admin: 08/02/18 10:23 Dose: 1 patch Rosuvastatin Calcium (Crestor) 20 mg PO HS [facility] Last Admin: 08/02/18 21:28 Dose: 20 mg Tamsulosin HCl (Flomax) 0.4 mg PO DAILY [facility] Last Admin: 08/02/18 10:21 Dose: 0.4 mg - Labs Labs: 08/02/18 07:33 08/02/18 07:33 PT 11.7 SECONDS (9.7-12.2) 07/30/18 18:19 INR 1.1 07/30/18 18:19 APTT 38.0 SECONDS (21-34) H 07/30/18 18:19 - Constitutional Appears: Well, No Acute Distress - Head Exam Head Exam: ATRAUMATIC, NORMAL INSPECTION - Eye Exam Eye Exam: EOMI, Normal appearance - ENT Exam ENT Exam: Mucous Membranes Moist - Respiratory Exam Respiratory Exam: Clear to Ausculation Bilateral, NORMAL BREATHING PATTERN. absent: Decreased Breath Sounds, Rhonchi, Wheezes, Respiratory Distress - Cardiovascular Exam Cardiovascular Exam: REGULAR RHYTHM, +S1, +S2. absent: Tachycardia, Murmur - GI/Abdominal Exam GI & Abdominal Exam: Firm, Soft, Normal Bowel Sounds. absent: Guarding, Rigid, Tenderness - Extremities Exam Extremities Exam: Normal Inspection. absent: Calf Tenderness, Pedal Edema Additional comments: Left groin no hematoma, s/p diagnostic cardiac catherization 08/01/18 - Neurological Exam Neurological Exam: Alert, Awake, Normal Gait, Oriented x3 Assessment and Plan (1) Acute electrocardiogram changes Assessment & Plan: Consultation: * Cardiology, Dr. Rivera---> Help appreciated -Lexiscan stress test: No EKG changes; awaiting nuclear stress test report - As per Dr. Rivera, patient was noted to have an abnormal Catherization, RCA blockage - PCI of the RCA (LUCIANA STENT)--08/03/18 * ambulate after 4pm today * ASA, Statins and b blockers for life Plavix 75 daily for 1 year Labs/Imaging: - WILMA score of 4: 20% risk at 14 days of [id number] new or recurrent MO or severe recurrent ischemia requiring urgent revascularization - EKG: ST elevation in lead V3 and T-wave inversion in V2 at access developer office 07/30/18 - EKG(inpatient): reconfirms ST changes in lead V3 and T-wave inversion in lead V2 - Echocardiogram (08/01/18): LV systolic function is normal. The ejection fra ction is 55-60%. Diastolic dysfunction. There is mild to moderate aortic regurgitation. There is no mitral valve regurgitation noted. There is no tricuspid valve regurgtation noted. There is no pulmonic valvular regurgitation - Lipid Panel: TGL:101, Cholesterol: 209, LDL: 122 and HDL: 58 - TSH 3rd generation 2.73 - HgbA1c: 6.3 - Troponin negative X3 Medications: * Initiation of plavix 75mg PO daily (08/01/18) * Continue ASA 81mg PO daily * Continue atenolol 25mg PO daily * Crestor 5mg PO HS Status: Acute (2) Hypertension Assessment & Plan: Continue home medications: - Norvasc 5mg PO daily - Atenolol 25mg PO daily - HCTZ 25mg PO daily Status: Acute (3) Benign prostate hyperplasia Assessment & Plan: Flomax 0.4mg PO daily Finastride 5mg PO daily Status: Acute (4) Glucose intolerance (impaired glucose tolerance) Assessment & Plan: HgbA1C: 6.3 Accuchecks Status: Acute (5) Tobacco abuse Assessment & Plan: Teenager (3 cigarettes a day) Patient quit tobacco 3 months ago Nicotine 7mg/24 hr 1 patch daily Status: Acute (6) Creatinine elevation Assessment & Plan: Cr: 1.2; 0.2 point elevation from admission Cr baseline * NS @ 50mls/cc for 6 hours (08/01/18) * NS @ 80mls/cc initiation after PCI (08/03/18 * Will continue to monitor with labs Status: Acute (7) Prophylactic measure Assessment & Plan: GI: Pepcid 20mg PO QD DVT: Lovenox 40mg SC daily Disposition: Plans for discharge tomorrow All plans and management discussed with Dr. Colmenares Status: Acute <Elena Colmenares V - Last Filed: 08/03/18 19:18> Objective - Vital Signs/Intake and Output Vital Signs (last 24 hours): Temp Pulse Resp BP Pulse Ox 98.7 F 86 20 146/65 94 L 08/03/18 07:00 08/03/18 07:00 08/03/18 07:00 08/03/18 07:00 08/03/18 07:00 - Medications Medications: Current Medications Amlodipine Besylate (Norvasc) 5 mg PO DAILY [facility] Last Admin: 08/03/18 06:59 Dose: 5 mg Aspirin (Aspirin Chewable) 81 mg PO DAILY [facility] Last Admin: 08/03/18 06:59 Dose: 81 mg Atenolol (Tenormin) 25 mg PO DAILY [facility] Last Admin: 08/03/18 06:58 Dose: 25 mg Clopidogrel Bisulfate (Plavix) 75 mg PO DAILY [facility] Last Admin: 08/03/18 07:00 Dose: 75 mg Enoxaparin Sodium (Lovenox) 40 mg SC DAILY [facility] Last Admin: 07/31/18 10:28 Dose: Not Given Famotidine (Pepcid) 20 mg PO DAILY [facility] Last Admin: 08/02/18 10:22 Dose: 20 mg Finasteride (Proscar) 5 mg PO DAILY [facility] Last Admin: 08/02/18 10:22 Dose: 5 mg Hydrochlorothiazide (Hydrodiuril) 25 mg PO DAILY [facility] Last Admin: 08/02/18 10:22 Dose: 25 mg Sodium Chloride (Sodium Chloride 0.9%) 1,000 mls @ 80 mls/hr IV .[id number] [facility] Nicotine (Nicoderm Cq) 1 patch TD DAILY [facility] Last Admin: 08/02/18 10:23 Dose: 1 patch Rosuvastatin Calcium (Crestor) 20 mg PO HS [facility] Last Admin: 08/02/18 21:28 Dose: 20 mg Tamsulosin HCl (Flomax) 0.4 mg PO DAILY [facility] Last Admin: 08/02/18 10:21 Dose: 0.4 mg - Labs Labs: 08/02/18 07:33 08/02/18 07:33 PT 11.7 SECONDS (9.7-12.2) 07/30/18 18:19 INR 1.1 07/30/18 18:19 APTT 38.0 SECONDS (21-34) H 07/30/18 18:19 Attending/Attestation - Attestation Notes (Text): Patient went to [place] this morning for PCI with Dr. Rivera unable to evaluate since he is at [place]; have reattempted to see him prior to me leaving but he is not back yet.
[2018-08-04 07:45] VITALS: TEMP 97.9
[2018-08-04 08:22] LABS: BASO % 0.4 % (0.0-2.0); EOS # 0.1 K/uL (0.0-0.7); EOS % 1.1 % (0.0-4.0); LYMPH # 1.8 K/uL (1.0-4.3); LYMPH % 24.4 % (20.0-40.0); MEAN CORPUSCULAR HEMOGLOBIN 28.9 pg (27.0-31.0); MEAN PLATELET VOLUME 10.2 fL (7.2-11.7); MONO # 0.9 K/uL (0.0-0.8); MONO % 13.1 % (0.0-10.0); NEUT # 4.4 K/uL (1.8-7.0); NRBC % 0.1 % (0.0-2.0); RBC 4.49 Mil/uL (4.40-5.90); RED CELL DISTRIBUTION WIDTH 13.6 % (11.5-14.5); WHITE BLOOD COUNT 7.2 K/uL (4.8-10.8)
[2018-08-04 08:37] LABS: ALB/GLOB RATIO 1.1 (1.0-2.1); ALBUMIN 3.7 g/dL (3.5-5.0); ALT/SGPT 26 U/L (21-72); AST/SGOT 45 U/L (17-59); BLOOD UREA NITROGEN 19 mg/dL (9-20); CALCIUM 9.1 mg/dl (8.6-10.4); GFR NON-AFRICAN AMERICAN > 60
--- NOTE | 2018-08-04 08:45 | CP.PCM.DIS ---
Provider - Provider Date of Admission: 08/01/18 17:18 Attending physician: Elena Colmenares DO Consults: 07/30/18 19:17 Cardiology Consult Routine Comment: ekg changes Consulting Provider: Regis Rivera Consulting Physician: Regis Rivera Reason for Consult: ekg changes Time Spent in preparation of Discharge (in minutes): 45 Diagnosis - Discharge Diagnosis (1) Acute electrocardiogram changes Status: Acute (2) Glucose intolerance (impaired glucose tolerance) Status: Acute (3) Hypertension Status: Chronic Hospital Course - Lab Results Lab Results: Most Recent Lab Values WBC 7.2 K/uL (4.8-10.8) 08/04/18 08:00 RBC 4.49 Mil/uL (4.40-5.90) 08/04/18 08:00 Hgb 13.0 g/dL (12.0-18.0) 08/04/18 08:00 Hct 38.1 % (35.0-51.0) 08/04/18 08:00 MCV 85.0 fL (80.0-94.0) 08/04/18 08:00 MCH 28.9 pg (27.0-31.0) 08/04/18 08:00 MCHC 34.0 g/dL (33.0-37.0) 08/04/18 08:00 RDW 13.6 % (11.5-14.5) 08/04/18 08:00 Plt Count 156 K/uL (130-400) 08/04/18 08:00 MPV 10.2 fL (7.2-11.7) 08/04/18 08:00 Neut % (Auto) 61.0 % (50.0-75.0) 08/04/18 08:00 Lymph % (Auto) 24.4 % (20.0-40.0) 08/04/18 08:00 Rooks % (Auto) 13.1 % (0.0-10.0) H 08/04/18 08:00 Eos % (Auto) 1.1 % (0.0-4.0) 08/04/18 08:00 Baso % (Auto) 0.4 % (0.0-2.0) 08/04/18 08:00 Neut # (Auto) 4.4 K/uL (1.8-7.0) 08/04/18 08:00 Lymph # (Auto) 1.8 K/uL (1.0-4.3) 08/04/18 08:00 Rooks # (Auto) 0.9 K/uL (0.0-0.8) H 08/04/18 08:00 Eos # (Auto) 0.1 K/uL (0.0-0.7) 08/04/18 08:00 Baso # (Auto) 0.0 K/uL (0.0-0.2) 08/04/18 08:00 PT 11.7 SECONDS (9.7-12.2) 07/30/18 18:19 INR 1.1 07/30/18 18:19 APTT 38.0 SECONDS (21-34) H 07/30/18 18:19 Sodium 135 mmol/L (132-148) 08/02/18 07:33 Potassium 4.3 mmol/L (3.6-5.2) 08/02/18 07:33 Chloride 101 mmol/L (98-107) 08/02/18 07:33 Carbon Dioxide 26 mmol/L (22-30) 08/02/18 07:33 Anion Gap 13 (10-20) 08/02/18 07:33 BUN 24 mg/dL (9-20) H 08/02/18 07:33 Creatinine 1.3 mg/dL (0.8-1.5) 08/02/18 07:33 Est GFR ( Amer) > 60 08/02/18 07:33 Est GFR (Non-Af Amer) 53 08/02/18 07:33 POC Glucose (mg/dL) 100 mg/dL (65-110) 08/03/18 06:20 Random Glucose 95 mg/dL (75-110) 08/02/18 07:33 Hemoglobin A1c 6.3 % (4.2-6.5) 07/31/18 04:15 Calcium 9.2 mg/dl (8.6-10.4) 08/02/18 07:33 Phosphorus 3.6 mg/dL (2.5-4.5) 08/02/18 07:33 Magnesium 1.8 mg/dL (1.6-2.3) 08/02/18 07:33 Total Bilirubin 0.6 mg/dL (0.2-1.3) 08/02/18 07:33 AST 29 U/L (17-59) 08/02/18 07:33 ALT 17 U/L (21-72) L D 08/02/18 07:33 Alkaline Phosphatase 88 U/L (38-126) 08/02/18 07:33 Total Creatine Kinase 97 U/L (55-170) 07/31/18 14:23 CK-MB (Mass) 1.67 ng/mL (0.0-3.38) 07/31/18 14:23 Troponin I < 0.0120 ng/mL (0.00-0.120) 07/31/18 14:23 NT-Pro-B Natriuret Pep 304 pg/mL (0-900) 07/30/18 18:19 Total Protein 7.3 g/dL (6.3-8.3) 08/02/18 07:33 Albumin 3.7 g/dL (3.5-5.0) 08/02/18 07:33 Globulin 3.6 gm/dL (2.2-3.9) 08/02/18 07:33 Albumin/Globulin Ratio 1.0 (1.0-2.1) 08/02/18 07:33 Triglycerides 101 mg/dL (0-149) 07/31/18 04:15 Cholesterol 209 mg/dL (0-199) H 07/31/18 04:15 LDL Cholesterol Direct 122 mg/dL (0-129) 07/31/18 04:15 HDL Cholesterol 58 mg/dL (30-70) 07/31/18 04:15 TSH 3rd Generation 2.73 mIU/L (0.46-4.68) 07/31/18 04:15 - Hospital Course Hospital Course: H&P: 78 year old Lao creole speaking male with a past medical history of hypertension, bph and speech impediment presents to the hospital after being referred here by his Sustainability Coordinator Dr. Rivera. Patient was seen earlier today in the office and had an ekg done that showed some changes in the anterior leads. Patient was told to come into the hospital to stay for cardiac catherization in the morning. Patient denies any symptoms in regards to daily activities. Per converstion with his sister Bret, he doesn't always let his family members know when something is bothering him. Patient denies any chest pain, shortness of breath, fevers, chills, headaches, dizziness, changes in vision, palpitations, dyspnea, or any other complaints. Hospital course: Mr. Strickland was sent over from sales development associate, Dr. Rivera clinic after he was noted to have ST changes noted on EKG in the clinic. In the hospital, pt was noted to have ST elevates in V1, V2 and V3. Cardiology, Dr. Rivera was consulted. Patient underwent Lexiscan on 07/31/18 which was normal and LVEF was >55%. Patient then underwent diagnostic cardiac catherization which showed 80% blockage in RCA. Patient was then transferred to [facility] for therapeutic catherization. He had 1 LUCIANA placed in RCA and was transferred back to [facility]. Patient tolerated procedure well. While in the hospital, patient noted to have HgbA1c of 6.3. He was instructed on maintaining a low fat and low carbohydrate diet and exercise regularly. Discharge instructions: Please discharge patient home Please continue your home medications as prescribed: - Norvasc 5mg PO daily - Aspirin 81mg PO daily - Atenolol 25mg PO daily - Proscar 5mg PO daily - Flomax 0.5mg Po daily - Hydrochlorothiazide 25mg PO daily - Crestor 10mg PO HS Please start this new medication: - Plavix 75mg PO daily ( 1 tablet per mouth daily) for 1 year Please follow up with Dr. Rivera within 1 week of discharge Please follow up with your primary care physician within 1 week of discharge Please continue to work on smoking cessation as discussed Please take care Please return to the hospital if symptoms resumes - Date & Time of H&P Date of H&P: 08/04/18 Time of H&P: 08:39 Discharge Exam - Head Exam Head Exam: ATRAUMATIC, NORMAL INSPECTION - ENT Exam ENT Exam: Mucous Membranes Moist - Respiratory Exam Respiratory Exam: Clear to PA & Lateral, NORMAL BREATHING PATTERN. absent: Rales, Rhonchi, Wheezes - Cardiovascular Exam Cardiovascular Exam: REGULAR RHYTHM, +S1, +S2. absent: Diastolic murmur, Gallop, Rubs, Systolic Murmur - GI/Abdominal Exam GI & Abdominal Exam: Normal Bowel Sounds, Soft, Unremarkable. absent: Distended, Guarding, Tenderness - Extremities Exam Additional comments: no edema or tenderness - Neurological Exam Neurological exam: Alert, Normal Gait, Oriented x3 - Psychiatric Exam Psychiatric exam: Normal Affect, Normal Mood - Skin Skin Exam: Dry, Intact, Normal Color, Warm Discharge Plan - Discharge Medications Prescriptions: Clopidogrel [Plavix] 75 mg PO DAILY #30 tab Rosuvastatin Calcium [Crestor] 10 mg PO HS #30 tab - Follow Up Plan Condition: GOOD Disposition: HOME/ ROUTINE Instructions: Electrocardiogram, High Blood Pressure in Adults, Heart Attack (DC), Benign Prostatic Hyperplasia (Enlarged Prostate) (DC), Quitting Smoking Additional Instructions: Please discharge patient home Please continue your home medications as prescribed: - Norvasc 5mg PO daily - Aspirin 81mg PO daily - Atenolol 25mg PO daily - Proscar 5mg PO daily - Flomax 0.5mg Po daily - Hydrochlorothiazide 25mg PO daily - Crestor 10mg PO HS Please start this new medication: - Plavix 75mg PO daily ( 1 tablet per mouth daily) for 1 year Please follow up with Dr. Rivera within 1 week of discharge Please follow up with your primary care physician within 1 week of discharge Please continue to work on smoking cessation as discussed Please take care Please return to the hospital if symptoms resumes Referrals: Regis Rivera MD [Staff Provider] -
[2018-08-04] MEDS: Enoxaparin 40 mg Syringe SC SCH (09:07)
[2018-08-04 14:47] VITALS: BP 172/66; PULSE 77; O2SAT 96
--- NOTE | 2018-08-05 09:59 | CP.PCM.PN ---
Subjective - Date & Time of Evaluation Date of Evaluation: 08/04/18 Time of Evaluation: 13:05 - Subjective Subjective: Patient was seen and examined at bedside. Patient reports that he is doing well and has no complaints. S/P RCA stent (LUCIANA) Physical examination - Constitutional Appears: Well, No Acute Distress - Head Exam Head Exam: ATRAUMATIC, NORMAL INSPECTION - Eye Exam Eye Exam: EOMI, Normal appearance - ENT Exam ENT Exam: Mucous Membranes Moist - Respiratory Exam Respiratory Exam: Clear to Ausculation Bilateral, NORMAL BREATHING PATTERN. absent: Decreased Breath Sounds, Rhonchi, Wheezes, Respiratory Distress - Cardiovascular Exam Cardiovascular Exam: REGULAR RHYTHM, +S1, +S2. absent: Tachycardia, Murmur - GI/Abdominal Exam GI & Abdominal Exam: Firm, Soft, Normal Bowel Sounds. absent: Guarding, Rigid, Tenderness - Extremities Exam Extremities Exam: Normal Inspection. absent: Calf Tenderness, Pedal Edema Additional comments: Left groin no hematoma, s/p diagnostic cardiac catherization 08/01/18 - Neurological Exam Neurological Exam: Alert, Awake, Normal Gait, Oriented x3 Assessment and Plan (1) CAD s/p RCA stent Assessment & Plan: Post PCI management (2) Hypertension Assessment & Plan: Continue home medications: - Norvasc 5mg PO daily - Atenolol 25mg PO daily - HCTZ 25mg PO daily Status: Acute (3) Benign prostate hyperplasia Assessment & Plan: Flomax 0.4mg PO daily Finastride 5mg PO daily Status: Acute (4) Glucose intolerance (impaired glucose tolerance) Assessment & Plan: HgbA1C: 6.3 Accuchecks Status: Acute (5) Tobacco abuse Assessment & Plan: Teenager (3 cigarettes a day) Patient quit tobacco 3 months ago Nicotine 7mg/24 hr 1 patch daily Status: Acute (6) Prophylactic measure Assessment & Plan: GI: Pepcid 20mg PO QD DVT: Lovenox 40mg SC daily For d/c home today Discharge instrcuctions given to aptient and family Patient wll f/u with me in August Objective - Vital Signs/Intake and Output Vital Signs (last 24 hours): Temp Pulse Resp BP Pulse Ox 97.9 F 77 20 172/66 H 96 08/04/18 07:25 08/04/18 14:25 08/04/18 07:25 08/04/18 14:25 08/04/18 14:25 - Labs Labs: 08/04/18 08:00 08/04/18 08:00 PT 11.7 SECONDS (9.7-12.2) 07/30/18 18: INR 1.1 07/30/18 18:19 APTT 38.0 SECONDS (21-34) H 07/30/18 18:19
== END 2018-08-04 15:48 | disposition home or self-care (01) | DRG 247 ==
LOC: C.ER 17:30 → C.6T 19:15 → UNDOADMOB 19:15 → C.6T 08-01 17:08 → OBSVTOIN 08-01 17:18 → INTOOBSV 08-01 17:18
PROVIDERS: ADMIT Hospitalist; ATTEND Hospitalist
PROC: 4A023N7 Measurement of Cardiac Sampling and Pressure, Left Heart, Percutaneous Approach (ICD-10-PCS; 2018-08-01)
PROC: B2151ZZ Fluoroscopy of Left Heart using Low Osmolar Contrast (ICD-10-PCS; 2018-08-01)
PROC: B2111ZZ Fluoroscopy of Multiple Coronary Arteries using Low Osmolar Contrast (ICD-10-PCS; 2018-08-01)
PROC: 027034Z Dilation of Coronary Artery, One Artery with Drug-eluting Intraluminal Device, Percutaneous Approach (ICD-10-PCS; principal; 2018-08-03)
DX: I25.10 Atherosclerotic heart disease of native coronary artery without angina pectoris (principal); I10 Essential (primary) hypertension; I35.1 Nonrheumatic aortic (valve) insufficiency; R94.31 Abnormal electrocardiogram [ECG] [EKG]; J44.9 Chronic obstructive pulmonary disease, unspecified; R73.02 Impaired glucose tolerance (oral); N40.0 Benign prostatic hyperplasia without lower urinary tract symptoms; F17.210 Nicotine dependence, cigarettes, uncomplicated; Z79.82 Long term (current) use of aspirin